=== PATIENT | male | born 1960 ===

== ENCOUNTER 2017-08-03 21:26 | Emergency (ER) | payer OTHER ==
[2017-08-03 21:33] VITALS: O2SAT 98
--- NOTE | 2017-08-03 21:49 | ED PDOC ---
HPI: Male Pain Time Seen by Provider: 08/03/17 21:37 Chief Complaint (Nursing): Male Genitourinary Chief Complaint (Provider): difficulty urinating History Per: Patient, Family History/Exam Limitations: no limitations Onset/Duration Of Symptoms: Days (2) Current Symptoms Are (Timing): Still Present Quality Of Discomfort: Pressure Additional History Per: Patient Additional Complaint(s): 57 y/o male presents with difficulty urinating x 2 days. Patient states he has to push to get urine out, and when it comes out it comes out in "drips". He notes associated abdominal fullness. Admits to similar symptoms in past where he has had to catheterize himself and has had a procedure with urology in past, but does not know what it was for. Denies fever, nausea/vomiting, chest pain, shortness of breath, back pain, hematuria. Past Medical History Reviewed: Historical Data, Nursing Documentation, Vital Signs Vital Signs: Last Vital Signs Temp 98.9 F 08/03/17 21:30 Pulse 76 08/03/17 21:30 Resp 18 08/03/17 21:30 BP 164/105 H 08/03/17 21:30 Pulse Ox 98 08/03/17 21:30 - Medical History PMH: No Chronic Diseases - Family History Family History: States: No Known Family Hx - Home Medications Home Medications: Ambulatory Orders Medication Instructions Recorded Ciprofloxacin HCl [Cipro] 500 mg PO BID #9 tab 08/04/17 - Allergies Allergies/Adverse Reactions: Allergies Allergy/AdvReac Type Severity Reaction Status Date / Time No Known Allergies Allergy Verified 08/03/17 21:30 Review of Systems ROS Statement: Except As Marked, All Systems Reviewed And Found Negative Genitourinary Male: Positive for: Other - Laboratory Results Result Diagrams: 08/03/17 23:28 08/03/17 23:28 - ECG O2 Sat by Pulse Oximetry: 98 - Progress ED Course And Treament: labs, urine, bladder scan Bladder scan >400CC Heredia, Straight catheter attempted by RN without success due to resistance. Dr. Galloway at bedside for coup de cath insertion, also unsuccessful due to resistance. Dr. Galloway spoke with Dr. Main, Urology, who will come for suprapubic catheter insertion. Dr. Main inserted suprapubic cather, leg bag; recommends follow up in office Saturday. On re-eval, patient states he is feeling much better. Abdomen soft, nontender, nondistended. UO 1400CC Cipro rx provided (dose in ED) Patient/family educated on findings, advised follow up Saturday with Dr. Main as instructed. Take medication as directed. Return to ED for worsening/concerning symptoms. Disposition - Clinical Impression Clinical Impression: Acute urinary retention - Patient ED Disposition Is Patient to be Admitted: No Counseled Patient/Family Regarding: Studies Performed, Diagnosis, Need For Followup, Rx Given - Disposition Referrals: Alexsandra Main MD [Medical Doctor] - [facility] [Outside] Disposition: Routine/Home Disposition Time: 01:47 Condition: IMPROVED Prescriptions: Ciprofloxacin HCl [Cipro] 500 mg PO BID #9 tab Instructions: Urinary Retention in Men (ED) Forms: [employer] (Cuban) Print Language: ALBANIAN
[2017-08-03 23:34] LABS: BASO % 0.3 % (0.0-2.0); EOS # 0.3 K/uL (0.0-0.7); EOS % 2.3 % (0.0-4.0); LYMPH % 15.9 % (20.0-40.0); MEAN CELL VOLUME 97.2 fl (80.0-94.0); MEAN CORPUSCULAR HEMOGLOBIN 32.2 pg (27.0-31.0); MEAN CORPUSCULAR HGB CONC 33.1 g/dL (33.0-37.0); MEAN PLATELET VOLUME 10.7 fl (7.2-11.7); MONO # 1.4 K/uL (0.0-0.8); MONO % 10.6 % (0.0-10.0); NEUT # 9.1 K/uL (1.8-7.0); NEUT % 70.9 % (50.0-75.0); WHITE BLOOD COUNT 12.8 K/uL (4.8-10.8)
[2017-08-03 23:43] LABS: ALB/GLOB RATIO 1.4 (1.0-2.1); BILIRUBIN,TOTAL 2.6 mg/dl (0.2-1.3); CALCIUM 8.9 mg/dL (8.4-10.2); POTASSIUM 3.8 MMOL/L (3.6-5.0); TOTAL PROTEIN 7.9 G/DL (6.3-8.2)
[2017-08-03] MEDS ORDERED: Lidocaine 2% Inj (20ml) ONE (23:57)
[2017-08-04 00:54] LABS: RBC URINE 2 /hpf (0-3); URINE BILIRUBIN NEGATIVE (NEGATIVE); URINE BLOOD LARGE (NEGATIVE); URINE COLOR YELLOW (YELLOW); URINE GLUCOSE (UA) NEG (Normal); URINE KETONE NEGATIVE (NEGATIVE); URINE LEUKOCYTE ESTERASE NEG Leu/uL (Negative); URINE PROTEIN 100 mg/dL (NEGATIVE); URINE UROBILINOGEN 0.2-1.0 mg/dL (0.2-1.0); WBC URINE 3 /hpf (0-5)
[2017-08-04 02:01] VITALS: BP 148/79; PULSE 86; RESP 16; TEMP 98.3
[2017-08-04] MEDS ORDERED: Lidocaine 2% Inj (20ml) SC STA (02:19)
== END 2017-08-04 01:59 | disposition home or self-care (01) ==
LOC: SUPCPDRO 21:26 → H.ER 21:26
DX: R33.9 Retention of urine, unspecified (principal)

== ENCOUNTER 2017-08-07 08:18 | Emergency (ER) | payer OTHER ==
[2017-08-07 08:33] VITALS: BP 163/92; PULSE 64; TEMP 98.1; O2SAT 98
[2017-08-07 09:01] VITALS: RESP 18
--- NOTE | 2017-08-07 09:45 | ED PDOC ---
HPI: Male Pain Time Seen by Provider: 08/07/17 09:06 Chief Complaint (Nursing): Male Genitourinary Chief Complaint (Provider): Ostomy bag malfunction History Per: Patient History/Exam Limitations: no limitations Onset/Duration Of Symptoms: Days Associated Symptoms: denies: Fever, Chills, Nausea, Vomiting, Diarrhea, Urinary Symptoms Additional Complaint(s): 57yo male with past medical history of prostate hyperplasia, currently following up with Dr. Main, presents to ED for evaluation as his ostomy bag has been leaking for the past couple days. Patient states his suprapubic catheter was placed by Dr. Main as he has a history of chronic urinary retention. Patient denies any changes in urine color, vomiting, fever and abdominal pain. Patient has no medical complaints. Past Medical History Reviewed: Historical Data, Nursing Documentation, Vital Signs Vital Signs: Last Vital Signs Temp 98.1 F 08/07/17 08:58 Pulse 64 08/07/17 08:58 Resp 18 08/07/17 08:58 BP 163/92 H 08/07/17 08:58 Pulse Ox 98 08/07/17 08:58 - Medical History Other PMH: prostate hyperplasia - Surgical History Other surgeries: urostomy, indwelling suprapubic catheter - Family History Family History: States: No Known Family Hx - Home Medications Home Medications: Ambulatory Orders Medication Instructions Recorded Ciprofloxacin HCl [Cipro] 500 mg PO BID #9 tab 08/04/17 - Allergies Allergies/Adverse Reactions: Allergies Allergy/AdvReac Type Severity Reaction Status Date / Time No Known Allergies Allergy Verified 08/03/17 21:30 Review of Systems ROS Statement: Except As Marked, All Systems Reviewed And Found Negative Constitutional: Negative for: Fever, Chills Gastrointestinal: Negative for: Nausea, Vomiting, Abdominal Pain, Diarrhea Genitourinary Male: Positive for: Other (leaking urostomy bag). Negative for: Hematuria Physical Exam - Reviewed Nursing Documentation Reviewed: Yes Vital Signs Reviewed: Yes - Physical Exam Appears: Positive for: Non-toxic, No Acute Distress Head Exam: Positive for: ATRAUMATIC, NORMAL INSPECTION, NORMOCEPHALIC Skin: Positive for: Normal Color Eye Exam: Positive for: Normal appearance Neck: Positive for: Supple Cardiovascular/Chest: Positive for: Regular Rate, Rhythm Respiratory: Positive for: Normal Breath Sounds. Negative for: Respiratory Distress Gastrointestinal/Abdominal: Positive for: Soft, Other (indwelling suprapubic catheter, no swelling or tenderness). Negative for: Tenderness Extremity: Positive for: Normal ROM, Other (ostomy bag near right thigh filled with urine) Neurologic/Psych: Positive for: Alert, Oriented - ECG O2 Sat by Pulse Oximetry: 98 (RA) Pulse Ox Interpretation: Normal Medical Decision Making Medical Decision Making: Time: 919 Impression: Urostomy bag malfunction Plan: -- Change urostomy bag. Patient instructed to follow up with Dr. Main. Patient stable for discharge home. Scribe Attestation: Documented by Mariah Beltran acting as a scribe for Jen Yates MD. Provider Attestation: All medical record entries made by the Scribe were at my direction and personally dictated by me. I have reviewed the chart and agree that the record accurately reflects my personal performance of the history, physical exam, medical decision making, and the department course for this patient. I have also personally directed, reviewed, and agree with the discharge instructions and disposition. Disposition - Clinical Impression Clinical Impression: Suprapubic catheter dysfunction - Disposition Referrals: Alexsandra Main MD [Medical Doctor] - Disposition: Routine/Home Disposition Time: 10:30 Condition: GOOD Additional Instructions: Follow up with your PCP in 2-3 days. Instructions: Urinary Leg Bag (GEN) Print Language: [place] RICAN
== END 2017-08-07 11:14 | disposition home or self-care (01) ==
LOC: H.ER 08:18
DX: T83.090A Other mechanical complication of cystostomy catheter, initial encounter (principal); N40.0 Benign prostatic hyperplasia without lower urinary tract symptoms

== ENCOUNTER 2017-08-14 09:38 | Emergency (ER) | payer SELFPAY ==
[2017-08-14 09:40] VITALS: BMI 32.5
[2017-08-14 09:55] VITALS: BP 144/68; PULSE 71; RESP 21; TEMP 98.5; O2SAT 96
[2017-08-14 11:04] LABS: RBC URINE 7 /hpf (0-3); URINE BACTERIA OCC (<OCC); URINE BILIRUBIN NEGATIVE (NEGATIVE); URINE BLOOD SMALL (NEGATIVE); URINE COLOR YELLOW (YELLOW); URINE GLUCOSE (UA) NEG (Normal); URINE KETONE NEGATIVE (NEGATIVE); URINE LEUKOCYTE ESTERASE MOD Leu/uL (Negative); URINE PROTEIN 30 mg/dL (NEGATIVE); URINE UROBILINOGEN 0.2-1.0 mg/dL (0.2-1.0); WBC URINE 19 /hpf (0-5)
--- NOTE | 2017-08-14 11:31 | ED PDOC ---
HPI: Male Pain Time Seen by Provider: 08/14/17 10:02 Chief Complaint (Nursing): Male Genitourinary History Per: Patient (present for urine leg bag to be changed. He is scheduled for prostate surgery with Dr. Main in 5 days. States that Preop has been done already.) History/Exam Limitations: no limitations Past Medical History Reviewed: Historical Data, Nursing Documentation, Vital Signs Vital Signs: Last Vital Signs Temp 98.5 F 08/14/17 09:54 Pulse 71 08/14/17 09:54 Resp 21 08/14/17 09:54 BP 144/68 08/14/17 09:54 Pulse Ox 96 08/14/17 09:54 - Medical History Other PMH: prostate disease - Family History Family History: States: Unknown Family Hx - Home Medications Home Medications: Ambulatory Orders Medication Instructions Recorded Ciprofloxacin HCl [Cipro] 500 mg PO BID #9 tab 08/04/17 - Allergies Allergies/Adverse Reactions: Allergies Allergy/AdvReac Type Severity Reaction Status Date / Time No Known Allergies Allergy Verified 08/14/17 09:59 Review of Systems ROS Statement: Except As Marked, All Systems Reviewed And Found Negative Constitutional: Negative for: Fever, Chills Gastrointestinal: Negative for: Nausea, Vomiting Genitourinary Male: Negative for: Dysuria (but has foul smelling urine) Physical Exam - Reviewed Nursing Documentation Reviewed: Yes Vital Signs Reviewed: Yes - Physical Exam Appears: Positive for: Well, Non-toxic, No Acute Distress Skin: Positive for: Normal Color, Warm, DRY Eye Exam: Positive for: EOMI, Normal appearance, PERRL Gastrointestinal/Abdominal: Positive for: Other (suprapubic catheter in place) - ECG O2 Sat by Pulse Oximetry: 96 Disposition - Clinical Impression Clinical Impression: Urine malodor, Suprapubic catheter dysfunction - Patient ED Disposition Is Patient to be Admitted: No Doctor Will See Patient In The: Office Counseled Patient/Family Regarding: Diagnosis, Need For Followup - Disposition Referrals: Alexsandra Main MD [Medical Doctor] - Disposition: Routine/Home Disposition Time: 11:15 Condition: STABLE Instructions: Urinary Leg Bag (GEN) Forms: [employer] (Iraqi) Print Language: MALAY - POA Present On Arrival: None
== END 2017-08-14 12:11 | disposition home or self-care (01) ==
LOC: H.ER 09:38
DX: T83.090A Other mechanical complication of cystostomy catheter, initial encounter (principal)

== ENCOUNTER 2017-08-19 07:37 | Day surgery (SDC) | payer SELFPAY ==
[2017-08-14 10:11] VITALS: BMI 32.5
[2017-08-19] MEDS ORDERED: Lactated Ringer's 1,000 ML IV ONE (08:50)
[2017-08-19] MEDS ORDERED: Midazolam 2 MG/2 ML VIAL ONE (10:48)
[2017-08-19] MEDS ORDERED: Lidocaine 4% (Laryng-O-Jet) Kit MM ONE (10:48)
[2017-08-19] MEDS ORDERED: Propofol 10 mg/ml Inj (20 ML) ONE ×2 (10:48→11:17)
[2017-08-19] MEDS ORDERED: ePHEDrine 50 mg/ml Inj ONE (10:48)
[2017-08-19] MEDS ORDERED: Succinylcholine 200 mg/10 ml Inj IV ONE (10:48)
[2017-08-19] MEDS ORDERED: Lactated Ringer's 1,000 ML IV SCH (11:45)
[2017-08-19] MEDS: HYDROmorphone 0.5 mg/0.5 ml ISec IVP PRN ×2 (12:15→12:25)
[2017-08-19 13:43] VITALS: RESP 18
[2017-08-19 15:47] VITALS: BP 150/78; PULSE 62; TEMP 97.4; O2SAT 97
--- NOTE | 2017-08-19 19:41 | OP ---
PROCEDURE DATE: PREOPERATIVE DIAGNOSES: Urethral stricture, urinary retention. POSTOPERATIVE DIAGNOSES: Urethral stricture, urinary retention. PROCEDURE PERFORMED: Cystoscopy with internal optical urethrotomy and removal of a suprapubic tube. DESCRIPTION OF PROCEDURE: Patient was placed in the operating table in dorsal lithotomy position. The area of the groin was draped and prepped in the sterile manner. Using an optical urethrotome, went into the urethra atraumatically, identified the stricture which was probably in the proximal third of the urethra. I made 3 incisions into this stricture and was able then to bypass with the urethrotome into the bladder. There was no prostatic obstruction. The suprapubic tube was seen in the bladder. At that point, the urethrotome then was removed. The #24 Heredia catheter was inserted, and then I removed the suprapubic tube at this time. The initial outflow had a little bit of blood tinged urine; otherwise, following that was rather clear. Patient was taken from the operating room in good condition. Alexsandra Main MD
== END 2017-08-19 16:30 | disposition home or self-care (01) ==
LOC: H.OPSURG 07:37
PROVIDERS: ATTEND Urology
DX: N35.9 Urethral stricture, unspecified (principal)
CPT/HCPCS: 52275; J0330; J1170; J2001; J2250; J2704; J3010; J7120

== ENCOUNTER 2017-08-24 03:38 | Emergency (ER) | payer SELFPAY ==
[2017-08-24 03:38] VITALS: BMI 32.5
[2017-08-24 03:55] VITALS: RESP 16; TEMP 99; O2SAT 98
--- NOTE | 2017-08-24 04:33 | ED PDOC ---
HPI: Male Pain Time Seen by Provider: 08/24/17 03:40 Chief Complaint (Nursing): Male Genitourinary Chief Complaint (Provider): Male Genitourinary History Per: Patient History/Exam Limitations: no limitations Current Symptoms Are (Timing): Still Present Additional Complaint(s): 57 y/o male with a Heredia catheter and with past medical history of cystoscopy presents to the ED complaining of difficulty with urination. The catheter was removed yesterday and since then unable to completely void bladder and is only able to go a small amount at a time. Denies nausea, vomiting, diarrhea, fever, cough, shortness of breath or any further medical complaints. Past Medical History Reviewed: Historical Data, Nursing Documentation, Vital Signs Vital Signs: Last Vital Signs Temp 99 F 08/24/17 03:50 Pulse 77 08/24/17 03:50 Resp 16 08/24/17 03:50 BP 139/89 08/24/17 03:50 Pulse Ox 98 08/24/17 03:50 - Medical History PMH: Denies: Chronic Kidney Disease - Surgical History Other surgeries: cystoscopy - Family History Family History: States: Unknown Family Hx - Social History Current smoker - smoking cessation education provided: No (former smoker) Alcohol: Other (yes) Drugs: Denies - Home Medications Home Medications: Ambulatory Orders Medication Instructions Recorded Nitrofurantoin Monohyd/M-Cryst 100 mg PO BID 08/19/17 [Nitrofurantoin Monohydrate/Macrocrystals] - Allergies Allergies/Adverse Reactions: Allergies Allergy/AdvReac Type Severity Reaction Status Date / Time No Known Allergies Allergy Verified 08/24/17 03:50 Review of Systems ROS Statement: Except As Marked, All Systems Reviewed And Found Negative (As per HPI, otherwise negative) Genitourinary Male: Positive for: Dysuria Physical Exam - Reviewed Nursing Documentation Reviewed: Yes Vital Signs Reviewed: Yes - Physical Exam Appears: Positive for: Uncomfortable Head Exam: Positive for: ATRAUMATIC, NORMAL INSPECTION, NORMOCEPHALIC Skin: Positive for: Normal Color, Warm, Dry Eye Exam: Positive for: EOMI, Normal appearance, PERRL ENT: Positive for: Normal ENT Inspection Neck: Positive for: Normal, Painless ROM Cardiovascular/Chest: Positive for: Regular Rate, Rhythm. Negative for: Murmur Respiratory: Positive for: Normal Breath Sounds. Negative for: Accessory Muscle Use, Respiratory Distress Gastrointestinal/Abdominal: Positive for: Tenderness (suprapubic tenderness) - ECG O2 Sat by Pulse Oximetry: 98 Medical Decision Making Medical Decision Making: Time: 04:09 Initial Impression: 57 y/o male with difficulty urination after Heredia catheter removal Plan: Urine dipstick Culture urine Urinary catheter insertion Urinalysis Time: 05:21 Patient reports improvement in symptoms after voiding 2L of urine in bag. Patient is referred to urologist for further evaluation. Patient will be discharge home. Clinical Impression: Acute urinary retention Scribe Attestation: Documented by Jaison Jiménez acting as a scribe for Jacques Elizabeth MD. Scribe Attestation: All medical record entries made by the Scribe were at my direction and personally dictated by me. I have reviewed the chart and agree that the record accurately reflects my personal performance of the history, physical exam, medical decision making, and the department course for this patient. I have also personally directed, reviewed, and agree with the discharge instructions and disposition. Disposition - Clinical Impression Clinical Impression: Acute urinary retention - Disposition Referrals: Alexsandra Main MD [Medical Doctor] - Disposition: Routine/Home Disposition Time: 05:21 Condition: IMPROVED Instructions: Heredia Catheter Placement and Care (ED) Forms: [employer] (Comoran) Print Language: TURKMEN
[2017-08-24 04:53] LABS: RBC URINE 241 /hpf (0-3); URINE BACTERIA OCC (<OCC); URINE BILIRUBIN NEGATIVE (NEGATIVE); URINE BLOOD LARGE (NEGATIVE); URINE COLOR YELLOW (YELLOW); URINE GLUCOSE (UA) NEG (Normal); URINE KETONE NEGATIVE (NEGATIVE); URINE LEUKOCYTE ESTERASE LARGE Leu/uL (Negative); URINE PROTEIN 100 mg/dL (NEGATIVE); URINE UROBILINOGEN 0.2-1.0 mg/dL (0.2-1.0); WBC URINE 457 /hpf (0-5)
[2017-08-24 05:21] VITALS: BP 151/90; PULSE 65
== END 2017-08-24 05:30 | disposition home or self-care (01) ==
LOC: H.ER 03:38
DX: R33.9 Retention of urine, unspecified (principal)

== ENCOUNTER 2017-08-26 20:24 | Inpatient (IN) | payer SELFPAY ==
[2017-08-26 20:25] VITALS: BMI 32.5
--- NOTE | 2017-08-26 22:34 | CP.PCM.HP ---
History of Present Illness - History of Present Illness History of Present Illness: PCP: Not on Staff Urologist: Alexsandra Main MD Chief Complaint: Positive Urine Culture The patient was seen and evaluated in the ED HPI: 57 years old Male with hx of BPH, under- went Cystoscopy 08/19/[address] Main. The Ronquillo catheter was removed on 08/22/17 in the ED and patient discharged. He returned later the same night because of urinary retention. A new ronquillo satheter was inserted and specimen sent for culture and sensitivity. The patient was called by his Urologist to go to the ED for admission and antibiotic treatment of an ESBL E. coli which cultured in the Urine.Because of this the patient is here at the ED. No other complaints. PMH: BPH PSH: Cystoscopy Family Hx: States: Unknown Family Hx SH: Former Smoker; Alcohol socially; No illdgal drug use Allergies: NKDA Medication: Reviewed Present on Admission - Present on Admission Any Indicators Present on Admission: No History of DVT/PE: No History of Uncontrolled Diabetes: No Urinary Catheter: No Decubitus Ulcer Present: No Review of Systems - Review of Systems Systems not reviewed;Unavailable: Respiratory Distress - Constitutional Constitutional: absent: Chills, Fatigue, Fever, Frequent Falls, Headache - EENT Eyes: absent: Diplopia, Floaters, Photophobia, Requires Corrective Lenses Ears: absent: As Per HPI, Decreased Hearing, Ear Discharge, Tinnitus Nose/Mouth/Throat: absent: Epistaxis, Nasal Congestion, Nasal Discharge - Cardiovascular Cardiovascular: absent: Chest Pain, Diaphoresis, Dyspnea, Edema - Respiratory Respiratory: absent: Cough, Dyspnea, Wheezing, Chest Congestion - Gastrointestinal Gastrointestinal: absent: Abdominal Pain, Constipation, Cramping, Diarrhea, Nausea, Vomiting - Genitourinary Additional comments: Ronquillo catheter with bag attached in urethra. - Musculoskeletal Musculoskeletal: absent: Abnormal Gait, Arthralgias, Back Pain, Joint Swelling - Integumentary Integumentary: absent: Pruritus, Rash, Skin Ulcer, Sores, Striae, Swelling - Neurological Neurological: absent: Confusion, Focal Weakness, Loss of Vision, Restless Legs, Weakness - Psychiatric Psychiatric: absent: Anxiety, Depression, Panic Attacks - Endocrine Endocrine: absent: Fatigue, Polydipsia, Polyphagia, Polyuria - Hematologic/Lymphatic Hematologic: absent: Easy Bleeding, Easy Bruising Past Patient History - Infectious Disease Hx of Infectious Diseases: None - Past Medical History & Family History Past Medical History?: Yes - Past Social History Smoking Status: Former Smoker Chewing Tobacco Use: No Cigar Use: No Alcohol: Social Drugs: Denies - CARDIAC Hx Cardiac Disorders: No - PULMONARY Hx Respiratory Disorders: No - NEUROLOGICAL Hx Neurological Disorder: No - HEENT Hx HEENT Problems: No - RENAL Hx Chronic Kidney Disease: No - ENDOCRINE/METABOLIC Hx Endocrine Disorders: No - HEMATOLOGICAL/ONCOLOGICAL Hx Blood Disorders: No - INTEGUMENTARY Hx Dermatological Problems: No - MUSCULOSKELETAL/RHEUMATOLOGICAL Hx Musculoskeletal Disorders: No - GASTROINTESTINAL Hx Gastrointestinal Disorders: No - GENITOURINARY/GYNECOLOGICAL Hx Genitourinary Disorders: Yes Hx Prostate Problems: Yes Other/Comment: pt is poor historian- bladder issues within the last year - PSYCHIATRIC Hx Psychophysiologic Disorder: No Hx Substance Use: No - SURGICAL HISTORY Hx Surgeries: Yes Other/Comment: pt reports having sx with a urologist-does not recall. suprapubic catheter placement - ANESTHESIA Hx Anesthesia: Yes Hx Anesthesia Reactions: No Hx Malignant Hyperthermia: No Meds Allergies/Adverse Reactions: Allergies Allergy/AdvReac Type Severity Reaction Status Date / Time No Known Allergies Allergy Verified 08/24/17 03:50 Physical Exam - Constitutional Appears: No Acute Distress - Head Exam Head Exam: ATRAUMATIC, NORMAL INSPECTION, NORMOCEPHALIC - Eye Exam Eye Exam: EOMI, Normal appearance Pupil Exam: NORMAL ACCOMODATION, PERRL - ENT Exam ENT Exam: Mucous Membranes Moist, Normal Exam, Normal External Ear Exam, Normal Oropharynx - Respiratory Exam Respiratory Exam: Clear to Auscultation Bilateral. absent: Rales, Rhonchi, Wheezes - Cardiovascular Exam Cardiovascular Exam: REGULAR RHYTHM, RRR, +S1, +S2. absent: Gallop, JVD - GI/Abdominal Exam GI & Abdominal Exam: Normal Bowel Sounds, Soft. absent: Mass, Organomegaly, Tenderness - Rectal Exam Rectal Exam: Deferred - Extremities Exam Extremities exam: Positive for: full ROM. Negative for: calf tenderness, normal inspection, pedal edema - Back Exam Back exam: NORMAL INSPECTION. absent: CVA tenderness (L), CVA tenderness (R) - Neurological Exam Neurological exam: Altered, CN II-XII Intact, Reflexes Normal - Psychiatric Exam Psychiatric exam: Normal Affect, Normal Mood - Skin Skin Exam: Dry, Intact, Normal Color, Warm Results - Vital Signs Recent Vital Signs: Last Vital Signs Temp 98.1 F 08/26/17 21:26 Pulse 73 08/26/17 21:26 Resp 18 08/26/17 21:26 BP 147/79 08/26/17 21:26 Pulse Ox 98 08/26/17 21:26 - Labs Result Diagrams: 08/26/17 23:20 08/26/17 23:20 - Imaging and Cardiology Chest x-ray Status: Image reviewed by me Additional comment: No Infiltrate Assessment & Plan - Assessment and Plan (Free Text) Assessment: #. Complicated UTI with ESBL E.coli #. BPH with urinary retention Plan: 57 years old Male with hx of BPH, under- went Cystoscopy 08/19/[address] Main. A few hours after removal of the ronquillo catheter, he developed urinary retention . He returned to the ED where a new ronquillo was reinserted and urine sent for culture.The culture grew ESBL E. coli and the patient was called back to the ED to be treated with IV antibiotics. s. #. Complicated UTI with ESBL E.coli - Consult Dr Wilson ID - Meropenem - Repeat urine culture after #. BPH with urinary retention - consult Dr Webberrology - Continue Ronquillo catheter until seen by Urology #. DVT Prophylaxis with SCD #. Code Status: Full - Date & Time Date: 08/26/17 Time: 22:33
--- NOTE | 2017-08-26 22:38 | ED PDOC ---
HPI: Male Pain Time Seen by Provider: 08/26/17 21:43 Chief Complaint (Nursing): Male Genitourinary Chief Complaint (Provider): Hematuria History Per: Patient History/Exam Limitations: no limitations Additional Complaint(s): Pt had cystoscopy on 08/19/[address] Main. On 08/24, Heredia was removed but came to ED when unable to urinate, another Heredia placed and urine sent for analysis. Culture results today revealed ESBL and recommended by Dr. Main to return for admission for IV antibiotics and ID consult. Pt reports hematuria today. Denies fever, nausea, vomiting, abdominal pain. Past Medical History Reviewed: Nursing Documentation, Vital Signs Vital Signs: Last Vital Signs Temp 98.1 F 08/26/17 21:26 Pulse 73 08/26/17 21:26 Resp 18 08/26/17 21:26 BP 147/79 08/26/17 21:26 Pulse Ox 98 08/26/17 21:26 - Medical History PMH: Benign Prostatic Hyperplasia Denies: Chronic Kidney Disease - Surgical History Other surgeries: Cystoscopy - Family History Family History: States: Unknown Family Hx - Social History Current smoker - smoking cessation education provided: No - Home Medications Home Medications: Ambulatory Orders Medication Instructions Recorded Nitrofurantoin Monohyd/M-Cryst 100 mg PO BID 08/19/17 [Nitrofurantoin Monohydrate/Macrocrystals] - Allergies Allergies/Adverse Reactions: Allergies Allergy/AdvReac Type Severity Reaction Status Date / Time No Known Allergies Allergy Verified 08/24/17 03:50 Review of Systems Constitutional: Negative for: Fever, Chills Cardiovascular: Negative for: Chest Pain, Palpitations Respiratory: Negative for: Cough, Shortness of Breath Gastrointestinal: Negative for: Nausea, Vomiting, Abdominal Pain, Diarrhea Genitourinary Male: Positive for: Hematuria. Negative for: Scrotal Pain, Rash, Penile Pain Musculoskeletal: Negative for: Back Pain Skin: Negative for: Rash, Lesions Neurological: Negative for: Headache Physical Exam - Reviewed Nursing Documentation Reviewed: Yes Vital Signs Reviewed: Yes - Physical Exam Appears: Positive for: Well, No Acute Distress Skin: Positive for: Normal Color, Warm, Dry Eye Exam: Positive for: Normal appearance, EOMI, PERRL Cardiovascular/Chest: Positive for: Regular Rate, Rhythm Respiratory: Positive for: Normal Breath Sounds Gastrointestinal/Abdominal: Positive for: Normal Exam, Bowel Sounds, Soft. Negative for: Tenderness, Guarding, Rebound Male Genital Exam: Positive for: other (Heredia in place). Negative for: bleeding Back: Positive for: Normal Inspection. Negative for: L CVA Tenderness, R CVA Tenderness Extremity: Positive for: Normal ROM Neurologic/Psych: Positive for: Alert, Oriented - Laboratory Results Result Diagrams: 08/26/17 23:20 - ECG O2 Sat by Pulse Oximetry: 98 - Physician Consult Information Physician Contacted: Young Wilson Outcome Of Conversation: States can initiate Meropenem without ID approval. Medical Decision Making Medical Decision Makin yo male with + ESBL on urine culture s/p cystoscopy. - labs - EKG - CXR - IV Abx Disposition - Clinical Impression Clinical Impression: ESBL (extended spectrum beta-lactamase) producing bacteria infection - Disposition Disposition Time: 23:48 Condition: STABLE - Pt Status Changed To: Hospital Disposition Of: Inpatient - Admit Certification Admit to Inpatient:: After my assessment, the patient will require hospitalization for at least two midnights. This is because of the severity of symptoms shown, intensity of services needed, and/or the medical risk in this patient being treated as an outpatient. - POA Present On Arrival: Cath Associated UTI
[2017-08-26 23:26] LABS: VENOUS BLOOD GAS PCO2 44 mmHg (40-60)
[2017-08-26 23:40] LABS: BASO # 0.1 K/uL (0.0-0.2); BASO % 0.7 % (0.0-2.0); EOS # 0.2 K/uL (0.0-0.7); EOS % 3.2 % (0.0-4.0); HEMATOCRIT 39.7 % (35.0-51.0); LYMPH # 2.7 K/uL (1.0-4.3); LYMPH % 34.7 % (20.0-40.0); MEAN CELL VOLUME 96.2 fl (80.0-94.0); MEAN CORPUSCULAR HEMOGLOBIN 31.9 pg (27.0-31.0); MEAN CORPUSCULAR HGB CONC 33.2 g/dL (33.0-37.0); MEAN PLATELET VOLUME 10.2 fl (7.2-11.7); MONO # 0.8 K/uL (0.0-0.8); MONO % 9.9 % (0.0-10.0); NEUT % 51.5 % (50.0-75.0); NRBC % 0.1 % (0.0-0.0); RED CELL DISTRIBUTION WIDTH 12.9 % (11.5-14.5); WHITE BLOOD COUNT 7.7 K/uL (4.8-10.8)
[2017-08-26] MEDS ORDERED: Meropenem 500 MG in Sodium Chloride 0.9% 100 ML IVPB STA (23:46)
[2017-08-26 23:56] LABS: PARTIAL THROMBOPLASTIN TIME 30.6 Seconds (25.6-37.1)
[2017-08-27 00:05] LABS: ALB/GLOB RATIO 1.3 (1.0-2.1); ALKALINE PHOSPHATASE 42 U/L (38-126); ALT/SGPT 35 U/L (21-72); AST/SGOT 22 U/L (17-59); BILIRUBIN,TOTAL 1.6 mg/dl (0.2-1.3); BLOOD UREA NITROGEN 15 mg/dl (9-20); CALCIUM 9.1 mg/dL (8.4-10.2); CARBON DIOXIDE 24 mmol/L (22-30); CHLORIDE 106 mmol/L (98-107); GFR AFRICAN-AMERICAN > 60; GLUCOSE,RANDOM 102 mg/dL (75-110); POTASSIUM 3.6 MMOL/L (3.6-5.0); SODIUM 141 mmol/l (132-148); TOTAL PROTEIN 7.3 G/DL (6.3-8.2)
[2017-08-27] MEDS ORDERED: Meropenem 500 MG in Sodium Chloride 0.9% 100 ML IVPB SCH (01:00)
--- NOTE | 2017-08-27 01:07 | CP.PCM.HP ---
History of Present Illness - History of Present Illness History of Present Illness: Past Patient History - Infectious Disease Hx of Infectious Diseases: None - Past Medical History & Family History Past Medical History?: Yes - Past Social History Smoking Status: Former Smoker - CARDIAC Hx Cardiac Disorders: No - PULMONARY Hx Respiratory Disorders: No - NEUROLOGICAL Hx Neurological Disorder: No - HEENT Hx HEENT Problems: No - RENAL Hx Chronic Kidney Disease: No - ENDOCRINE/METABOLIC Hx Endocrine Disorders: No - HEMATOLOGICAL/ONCOLOGICAL Hx Blood Disorders: No - INTEGUMENTARY Hx Dermatological Problems: No - MUSCULOSKELETAL/RHEUMATOLOGICAL Hx Musculoskeletal Disorders: No - GASTROINTESTINAL Hx Gastrointestinal Disorders: No - GENITOURINARY/GYNECOLOGICAL Hx Genitourinary Disorders: Yes Hx Prostate Problems: Yes Other/Comment: pt is poor historian- bladder issues within the last year - PSYCHIATRIC Hx Psychophysiologic Disorder: No Hx Substance Use: No - SURGICAL HISTORY Hx Surgeries: Yes Other/Comment: pt reports having sx with a urologist-does not recall. suprapubic catheter placement - ANESTHESIA Hx Anesthesia: Yes Hx Anesthesia Reactions: No Hx Malignant Hyperthermia: No Meds Allergies/Adverse Reactions: Allergies Allergy/AdvReac Type Severity Reaction Status Date / Time No Known Allergies Allergy Verified 08/24/17 03:50 Results - Vital Signs Recent Vital Signs: Last Vital Signs Temp 98.1 F 08/26/17 21:26 Pulse 73 08/26/17 21:26 Resp 18 08/26/17 21:26 BP 147/79 08/26/17 21:26 Pulse Ox 98 08/26/17 23:48 - Labs Result Diagrams: 08/26/17 23:20 08/26/17 23:20 Labs: Laboratory Results - last 24 hr 08/26/17 08/26/17 08/26/17 23:20 23:20 23:20 WBC 7.7 RBC 4.13 L Hgb 13.2 Hct 39.7 MCV 96.2 H MCH 31.9 H MCHC 33.2 RDW 12.9 Plt Count 174 MPV 10.2 Neut % (Auto) 51.5 Lymph % (Auto) 34.7 Mower % (Auto) 9.9 Eos % (Auto) 3.2 Baso % (Auto) 0.7 Neut # 4.0 Lymph # 2.7 Mower # 0.8 Eos # 0.2 Baso # 0.1 PT 11.5 INR 1.0 APTT 30.6 pO2 VBG pH VBG pCO2 VBG HCO3 VBG Total CO2 VBG O2 Sat (Calc) VBG Base Excess VBG Potassium Glucose Lactate FiO2 Sodium 141 Potassium 3.6 Chloride 106 Carbon Dioxide 24 Anion Gap 15 BUN 15 Creatinine 0.9 Est GFR ( Amer) > 60 Est GFR (Non-Af Amer) > 60 Random Glucose 102 Calcium 9.1 Total Bilirubin 1.6 H AST 22 ALT 35 Alkaline Phosphatase 42 Total Protein 7.3 Albumin 4.1 Globulin 3.2 Albumin/Globulin Ratio 1.3 Venous Blood Potassium 08/26/17 23:24 WBC RBC Hgb Hct MCV MCH MCHC RDW Plt Count MPV Neut % (Auto) Lymph % (Auto) Mower % (Auto) Eos % (Auto) Baso % (Auto) Neut # Lymph # Mower # Eos # Baso # PT INR APTT pO2 50 VBG pH 7.40 VBG pCO2 44 VBG HCO3 26.2 VBG Total CO2 28.7 H VBG O2 Sat (Calc) 88.7 H VBG Base Excess 2.0 VBG Potassium 3.4 L Glucose 126 H Lactate 0.7 FiO2 21.0 Sodium 139.0 Potassium Chloride 105.0 Carbon Dioxide Anion Gap BUN Creatinine Est GFR ( Amer) Est GFR (Non-Af Amer) Random Glucose Calcium Total Bilirubin AST ALT Alkaline Phosphatase Total Protein Albumin Globulin Albumin/Globulin Ratio Venous Blood Potassium 3.4 L Assessment & Plan - Date & Time Date: 08/26/17 Time: 22:23
--- NOTE | 2017-08-27 08:37 | RAD ---
HISTORY: Admission COMPARISON: Chest radiograph 08/14/2017. FINDINGS: LUNGS: No active pulmonary disease. PLEURA: No significant pleural effusion identified, no pneumothorax apparent. CARDIOVASCULAR: Normal. OSSEOUS STRUCTURES: No significant abnormalities. VISUALIZED UPPER ABDOMEN: Left hemidiaphragm appears mildly elevated. OTHER FINDINGS: None. IMPRESSION: No acute infiltrate or pleural effusion bilaterally. No cardiac disease appreciable. Left hemidiaphragm appears slightly elevated in the interval.
[2017-08-27] MEDS ORDERED: Influenza Vaccine 18yr & older 0.5 ML/45 MCG SYR IM ONE (09:00)
[2017-08-27] MEDS ORDERED: Pneumococcal 23-Valent Vaccine IM ONE (09:00)
--- NOTE | 2017-08-27 09:54 | CP.PCM.CON ---
History of Present Illness - History of Present Illness History of Present Illness: Infectious Disease Consultation Note- Asked to see this patient at the request of hospitalist and Gu for ESBL E.coli in urine cx. HPI- History obtained both from the patient and the medical chart . Patient is a 57 year old male with pmh of BPH who states for the past 3 years he has been dealing with difficulty urinating and has had multiple catheterizations to help with urinary retention. he states he has prostate scraping done first time a year ago and after that he had some difficulty urinating still oan and off and he was doing home self catheterization for a while and then later on he explains that 3 weeks ago he had prostate scraping by his ( second time as per patient ) and after that he states he had cystoscopy 08/19/2017 and few hours after removal of the ronquillo he developed urinary retention and he returned to ED where he had new ronquillo placed and urine cx was done and the cx grew ESBL e.coli and hence pt. was called back to be treated by IV antibiotics. Patient denies any dysurea and denies any lower abd pain and denies any back pain. he denies any nausea or vomiting, denies any fever or chills. he states he has been treated in past for positive urien cx but mostly with oral antibiotics. this morning pt. is sitting comfortably in bed and he states his ronquillo was removed an hour ago as per his rec and they will monitor to see if he can void on his own. pt. also states he has had suprapubic catheter in past. Allergy- NKDA Review of Systems - Review of Systems Review of Systems: as stated in HPI Past Patient History - Infectious Disease Hx of Infectious Diseases: None - Past Medical History & Family History Past Medical History?: Yes - Past Social History Smoking Status: Former Smoker Chewing Tobacco Use: No Cigar Use: No Alcohol: Social Drugs: Denies - CARDIAC Hx Cardiac Disorders: No - PULMONARY Hx Respiratory Disorders: No - NEUROLOGICAL Hx Neurological Disorder: No - HEENT Hx HEENT Problems: No - RENAL Hx Chronic Kidney Disease: No - ENDOCRINE/METABOLIC Hx Endocrine Disorders: No - HEMATOLOGICAL/ONCOLOGICAL Hx Blood Disorders: No - INTEGUMENTARY Hx Dermatological Problems: No - MUSCULOSKELETAL/RHEUMATOLOGICAL Hx Musculoskeletal Disorders: No - GASTROINTESTINAL Hx Gastrointestinal Disorders: No - GENITOURINARY/GYNECOLOGICAL Hx Genitourinary Disorders: Yes Hx Prostate Problems: Yes Other/Comment: pt is poor historian- bladder issues within the last year - PSYCHIATRIC Hx Psychophysiologic Disorder: No Hx Substance Use: No - SURGICAL HISTORY Hx Surgeries: Yes Other/Comment: pt reports having sx with a urologist-does not recall. suprapubic catheter placement - ANESTHESIA Hx Anesthesia: Yes Hx Anesthesia Reactions: No Hx Malignant Hyperthermia: No Meds Allergies/Adverse Reactions: Allergies Allergy/AdvReac Type Severity Reaction Status Date / Time No Known Allergies Allergy Verified 08/24/17 03:50 - Medications Medications: Current Medications Meropenem 1 gm/ Sodium (Chloride) 100 mls @ 100 mls/hr IVPB Q8 PAULA PRN Reason: Protocol Stop: 08/28/17 01:59 Physical Exam - Constitutional Appears: Non-toxic, No Acute Distress - Head Exam Head Exam: ATRAUMATIC - Eye Exam Eye Exam: EOMI - ENT Exam ENT Exam: Normal Oropharynx - Neck Exam Neck exam: Positive for: Full Rom - Respiratory Exam Respiratory Exam: Clear to Auscultation Bilateral, NORMAL BREATHING PATTERN - Cardiovascular Exam Cardiovascular Exam: RRR, +S1, +S2 - GI/Abdominal Exam GI & Abdominal Exam: Normal Bowel Sounds, Soft Additional comments: NT, ND no guarding, no rebound NO CVA tenderness b/l - Extremities Exam Extremities exam: Positive for: normal inspection - Neurological Exam Neurological exam: Alert, Oriented x3 Results - Vital Signs Recent Vital Signs: Last Vital Signs Temp 97.9 F 08/27/17 08:02 Pulse 79 08/27/17 08:02 Resp 20 08/27/17 08:02 BP 146/84 08/27/17 08:02 Pulse Ox 95 08/27/17 08:02 - Labs Result Diagrams: 08/26/17 23:20 08/26/17 23:20 Labs: Laboratory Results - last 24 hr 08/26/17 08/26/17 08/26/17 23:20 23:20 23:20 WBC 7.7 RBC 4.13 L Hgb 13.2 Hct 39.7 MCV 96.2 H MCH 31.9 H MCHC 33.2 RDW 12.9 Plt Count 174 MPV 10.2 Neut % (Auto) 51.5 Lymph % (Auto) 34.7 Woodward % (Auto) 9.9 Eos % (Auto) 3.2 Baso % (Auto) 0.7 Neut # 4.0 Lymph # 2.7 Woodward # 0.8 Eos # 0.2 Baso # 0.1 PT 11.5 INR 1.0 APTT 30.6 pO2 VBG pH VBG pCO2 VBG HCO3 VBG Total CO2 VBG O2 Sat (Calc) VBG Base Excess VBG Potassium Glucose Lactate FiO2 Sodium 141 Potassium 3.6 Chloride 106 Carbon Dioxide 24 Anion Gap 15 BUN 15 Creatinine 0.9 Est GFR ( Amer) > 60 Est GFR (Non-Af Amer) > 60 Random Glucose 102 Calcium 9.1 Total Bilirubin 1.6 H AST 22 ALT 35 Alkaline Phosphatase 42 Total Protein 7.3 Albumin 4.1 Globulin 3.2 Albumin/Globulin Ratio 1.3 Venous Blood Potassium 08/26/17 23:24 WBC RBC Hgb Hct MCV MCH MCHC RDW Plt Count MPV Neut % (Auto) Lymph % (Auto) Woodward % (Auto) Eos % (Auto) Baso % (Auto) Neut # Lymph # Woodward # Eos # Baso # PT INR APTT pO2 50 VBG pH 7.40 VBG pCO2 44 VBG HCO3 26.2 VBG Total CO2 28.7 H VBG O2 Sat (Calc) 88.7 H VBG Base Excess 2.0 VBG Potassium 3.4 L Glucose 126 H Lactate 0.7 FiO2 21.0 Sodium 139.0 Potassium Chloride 105.0 Carbon Dioxide Anion Gap BUN Creatinine Est GFR ( Amer) Est GFR (Non-Af Amer) Random Glucose Calcium Total Bilirubin AST ALT Alkaline Phosphatase Total Protein Albumin Globulin Albumin/Globulin Ratio Venous Blood Potassium 3.4 L Laboratory Results - last 72 hr 08/26/17 08/26/17 08/26/17 23:20 23:20 23:20 WBC 7.7 RBC 4.13 L Hgb 13.2 Hct 39.7 MCV 96.2 H MCH 31.9 H MCHC 33.2 RDW 12.9 Plt Count 174 MPV 10.2 Neut % (Auto) 51.5 Lymph % (Auto) 34.7 Woodward % (Auto) 9.9 Eos % (Auto) 3.2 Baso % (Auto) 0.7 Neut # 4.0 Lymph # 2.7 Woodward # 0.8 Eos # 0.2 Baso # 0.1 PT 11.5 INR 1.0 APTT 30.6 pO2 VBG pH VBG pCO2 VBG HCO3 VBG Total CO2 VBG O2 Sat (Calc) VBG Base Excess VBG Potassium Glucose Lactate FiO2 Sodium 141 Potassium 3.6 Chloride 106 Carbon Dioxide 24 Anion Gap 15 BUN 15 Creatinine 0.9 Est GFR ( Amer) > 60 Est GFR (Non-Af Amer) > 60 Random Glucose 102 Calcium 9.1 Total Bilirubin 1.6 H AST 22 ALT 35 Alkaline Phosphatase 42 Total Protein 7.3 Albumin 4.1 Globulin 3.2 Albumin/Globulin Ratio 1.3 Venous Blood Potassium 08/26/17 23:24 WBC RBC Hgb Hct MCV MCH MCHC RDW Plt Count MPV Neut % (Auto) Lymph % (Auto) Woodward % (Auto) Eos % (Auto) Baso % (Auto) Neut # Lymph # Woodward # Eos # Baso # PT INR APTT pO2 50 VBG pH 7.40 VBG pCO2 44 VBG HCO3 26.2 VBG Total CO2 28.7 H VBG O2 Sat (Calc) 88.7 H VBG Base Excess 2.0 VBG Potassium 3.4 L Glucose 126 H Lactate 0.7 FiO2 21.0 Sodium 139.0 Potassium Chloride 105.0 Carbon Dioxide Anion Gap BUN Creatinine Est GFR ( Amer) Est GFR (Non-Af Amer) Random Glucose Calcium Total Bilirubin AST ALT Alkaline Phosphatase Total Protein Albumin Globulin Albumin/Globulin Ratio Venous Blood Potassium 3.4 L Microbiology 08/24/17 04:36 Urine,Clean Catch Urine Culture - Final Escherichia Coli 08/14/17 10:47 Urine,Catheterized Urine Culture - Final Escherichia Coli 08/03/17 10:40 Urine,Clean Catch Urine Culture - Final No Growth (<1,000 CFU/ML) Accession No. : [id number] Patient Name / ID : DEVENDRA GALO / [id number] Exam Date : 08/26/2017 22:11:53 ( Approved ) Study Comment : Sex / Age : M / 57Y Creator : colleen caraballo Dictator : Jonas Langley MD [employer] Director : [employer] Bander Hand : Jonas Langley MD Approver2 : Report Date : 08/26/2017 22:27:56 My Comment : HISTORY: Admission COMPARISON: Chest radiograph 08/14/2017. FINDINGS: LUNGS: No active pulmonary disease. PLEURA: No significant pleural effusion identified, no pneumothorax apparent. CARDIOVASCULAR: Normal. OSSEOUS STRUCTURES: No significant abnormalities. VISUALIZED UPPER ABDOMEN: Left hemidiaphragm appears mildly elevated. OTHER FINDINGS: None. IMPRESSION: No acute infiltrate or pleural effusion bilaterally. No cardiac disease appreciable. Left hemidiaphragm appears slightly elevated in the interval. Assessment & Plan (1) ESBL (extended spectrum beta-lactamase) producing bacteria infection Status: Acute (2) Acute urinary retention Status: Acute - Assessment and Plan (Free Text) Assessment: A/P- 57 year old male with h/o BPH and urinary retention s/p prostate scraping, and multiple catheterizations in past including suprapubic who is recalled by ED since his most recent urine cx gre ESBL E.coli. pt. is completekly asymptomatic as for UTI symptoms. afebrile adn normal wbc count as well. urine cx- 50-100,000 ESBL E.coli , however there is no Urinalysis. this patient is most likely colonized secondary to multiple ronquillo insertions and procedures in recent past , however, in light of his urinary retention would advise to treat with IV antibiotics at this time to prevent prostatitis. Plan- meropenem already initiated last night as per my advice after discussion with ED doc. would advise to send clean cath Urinalysis and another urine culture . monitor voiding w/o catheter if possible. Length of antibiotic pending clinical response . Thank you for allowing me to take part in the care of this patient. all above d/w patient and he verbalizes full understanding of all above.
[2017-08-27] MEDS: Meropenem 1 GM in Sodium Chloride 0.9% 100 ML IVPB SCH ×2 (10:07→17:09)
--- NOTE | 2017-08-27 11:40 | CP.PCM.PN ---
<Jossy Knapp - Last Filed: 08/27/17 11:38> Subjective - Date & Time of Evaluation Date of Evaluation: 08/27/17 Time of Evaluation: 08:00 - Subjective Subjective: No acute overnight events. Pt seen and evaluated at the bedside this morning. Denies urinary frequency, urgency, dysuria, fever, or chills. Regular BM. No cough, CP, calf pain. 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 No complaints Objective - Vital Signs/Intake and Output Vital Signs (last 24 hours): Temp Pulse Resp BP Pulse Ox 97.9 F 79 20 146/84 95 08/27/17 08:02 08/27/17 08:02 08/27/17 08:02 08/27/17 08:02 08/27/17 08:02 - Medications Medications: Current Medications Meropenem 1 gm/ Sodium (Chloride) 100 mls @ 100 mls/hr IVPB Q8 PAULA PRN Reason: Protocol Stop: 08/28/17 01:59 - Labs Labs: 08/26/17 23:20 08/26/17 23:20 PT 11.5 Seconds (9.8-13.1) 08/26/17 23:20 INR 1.0 (0.9-1.2) 08/26/17 23:20 APTT 30.6 Seconds (25.6-37.1) 08/26/17 23:20 - Constitutional Appears: Well, Non-toxic, No Acute Distress - Head Exam Head Exam: ATRAUMATIC, NORMAL INSPECTION - ENT Exam ENT Exam: Mucous Membranes Moist - Respiratory Exam Respiratory Exam: Clear to Ausculation Bilateral. absent: Chest Wall Tenderness , Rales, Wheezes - Cardiovascular Exam Cardiovascular Exam: REGULAR RHYTHM, +S1, +S2. absent: Murmur - GI/Abdominal Exam GI & Abdominal Exam: Soft. absent: Distended, Firm, Guarding, Tenderness Additional comments: Ronquillo Cath in place - Back Exam Back Exam: absent: CVA tenderness (L), CVA tenderness (R) - Neurological Exam Neurological Exam: Alert, Awake, Oriented x3 - Psychiatric Exam Psychiatric exam: Normal Affect - Skin Skin Exam: Normal Color Assessment and Plan - Assessment and Plan (Free Text) Assessment: 57 years old Male with hx of BPH, under- went Cystoscopy 08/19/[address] Main. The Ronquillo catheter was removed on 08/22/17 in the ED and patient discharged. He returned later the same night because of urinary retention. Ronquillo was reinserted, and Urine Cx positive for ESBL E. Coli. Pt currenty receiving IV ABX. Plan: 57 years old Male with hx of BPH, under- went Cystoscopy 08/19/[address] Main[address] A few hours after removal of the ronquillo catheter, he developed urinary retention . He returned to the ED where a new ronquillo was reinserted and urine sent for culture.The culture grew ESBL E. coli and the patient was called back to the ED to be treated with IV antibiotics. s. #. Complicated UTI with ESBL E.col - Pt does not have urinary symptoms, afebrile, no leukocytosis - Consult Dr Wilson ID- awaiting further recommendations - C/W Meropenem IV - Repeat UCx #. BPH with urinary retention - consult Dr Webberrology - Continue Ronquillo catheter until seen by Urology #. DVT Prophylaxis with SCD #. Code Status: Full <Lana Dunham - Last Filed: 08/27/17 15:12> Objective - Vital Signs/Intake and Output Vital Signs (last 24 hours): Temp Pulse Resp BP Pulse Ox 97.9 F 79 20 146/84 95 08/27/17 08:02 08/27/17 08:02 08/27/17 08:02 08/27/17 08:02 08/27/17 08:02 - Medications Medications: Current Medications Meropenem 1 gm/ Sodium (Chloride) 100 mls @ 100 mls/hr IVPB Q8 PAULA PRN Reason: Protocol Stop: 08/28/17 01:59 Last Admin: 08/27/17 10:07 Dose: 100 mls/hr - Labs Labs: 08/26/17 23:20 08/26/17 23:20 PT 11.5 Seconds (9.8-13.1) 08/26/17 23:20 INR 1.0 (0.9-1.2) 08/26/17 23:20 APTT 30.6 Seconds (25.6-37.1) 08/26/17 23:20 Attending/Attestation - Attestation I have personally seen and examined this patient.: Yes I have fully participated in the care of the patient.: Yes I have reviewed all pertinent clinical information, including history, physical exam and plan: Yes Notes (Text): 08/27/17 15:09 ESBL E Coli UTI - cont IV Meropenem - ID consulted Urethral Stricture s/p Cystoscopy - pt reviously had Suprapubic catheter - now d/c - still with Urinary retention - Ronquillo Catheter in place - Urology consult - Dr Main
[2017-08-28] MEDS: Meropenem 1 GM in Sodium Chloride 0.9% 100 ML IVPB SCH (00:37)
[2017-08-28] MEDS ORDERED: Oxycodone/Acetaminophen 5/325 mg Tab PO PRN (03:22)
[2017-08-28 06:28] LABS: RBC URINE 5 /hpf (0-3); URINE BACTERIA OCC (<OCC); URINE BILIRUBIN NEGATIVE (NEGATIVE); URINE BLOOD LARGE (NEGATIVE); URINE COLOR YELLOW (YELLOW); URINE GLUCOSE (UA) NEG (Normal); URINE KETONE NEGATIVE (NEGATIVE); URINE LEUKOCYTE ESTERASE LARGE Leu/uL (Negative); URINE PROTEIN 30 mg/dL (NEGATIVE); URINE UROBILINOGEN 0.2-1.0 mg/dL (0.2-1.0); WBC URINE 18 /hpf (0-5)
[2017-08-28] MEDS ORDERED: Meropenem 500 MG in Sodium Chloride 0.9% 100 ML IVPB SCH ×2 (09:00→13:00)
--- NOTE | 2017-08-28 11:03 | CP.PCM.PN ---
Subjective - Date & Time of Evaluation Date of Evaluation: 08/28/17 Time of Evaluation: 08:00 - Subjective Subjective: Overnight pt complaints of abdominal pain and distension. Altough he had been voiding minimally, pt reports that he did not feel like he voided completely. Bladder scan showed ~700cc, pt was straight cath and put out 1300cc of urine. Given 1x morphine for pain and started on Pyridium by Urologist, Dr. Main. This morning, pt reports feeling relieved. States he normally straight caths himself at home, for the past 6 months as he is unable to void completely. Denies abdominal pain, dysuria, flank pain, fever, chills. Ambulating. Objective - Vital Signs/Intake and Output Vital Signs (last 24 hours): Temp Pulse Resp BP Pulse Ox 97.6 F 63 20 163/89 H 97 08/28/17 07:44 08/28/17 07:44 08/28/17 07:44 08/28/17 07:44 08/28/17 07:44 - Medications Medications: Current Medications Acetaminophen (Tylenol 325mg Tab) 650 mg PO Q6 PRN PRN Reason: Pain, Mild (1-3) Meropenem 500 mg/ Sodium (Chloride) 100 mls @ 100 mls/hr IVPB Q8 PAULA PRN Reason: Protocol Oxycodone/Acetaminophen (Percocet 5/325 Mg Tab) 1 tab PO Q6 PRN PRN Reason: Pain, moderate (4-7) Stop: 08/31/17 03:23 Last Admin: 08/28/17 03:49 Dose: 1 tab Phenazopyridine HCl (Pyridium) 200 mg PO BID [facility] Last Admin: 08/28/17 09:15 Dose: 200 mg Tamsulosin HCl (Flomax) 0.4 mg PO DAILY [facility] Last Admin: 08/28/17 09:15 Dose: 0.4 mg - Labs Labs: 08/26/17 23:20 08/26/17 23:20 PT 11.5 Seconds (9.8-13.1) 08/26/17 23:20 INR 1.0 (0.9-1.2) 08/26/17 23:20 APTT 30.6 Seconds (25.6-37.1) 08/26/17 23:20 - Constitutional Appears: Well, Non-toxic, No Acute Distress - Head Exam Head Exam: ATRAUMATIC, NORMAL INSPECTION - ENT Exam ENT Exam: Mucous Membranes Moist - Respiratory Exam Respiratory Exam: Clear to Ausculation Bilateral. absent: Rales, Wheezes - Cardiovascular Exam Cardiovascular Exam: REGULAR RHYTHM, +S1, +S2. absent: Murmur - GI/Abdominal Exam GI & Abdominal Exam: Distended, Normal Bowel Sounds. absent: Firm, Soft, Tenderness - Extremities Exam Extremities Exam: absent: Calf Tenderness, Pedal Edema - Back Exam Back Exam: absent: CVA tenderness (L), CVA tenderness (R) - Neurological Exam Neurological Exam: Alert, Awake, Oriented x3 - Psychiatric Exam Psychiatric exam: Normal Affect - Skin Skin Exam: Normal Color Assessment and Plan - Assessment and Plan (Free Text) Assessment: 57 years old Male with hx of BPH, under- went Cystoscopy 08/19/[address] Main. A few hours after removal of the ronquillo catheter, he developed urinary retention . He returned to the ED where a new ronquillo was reinserted and urine sent for culture.The culture grew ESBL E. coli and the patient was called back to the ED to be treated with IV antibiotics. #. Complicated UTI with ESBL E.col - Pt does not have urinary symptoms, afebrile, no leukocytosis - Consulted Dr Wilson ID- C/w ABX; colonization likely secondary to repeat ronquillo insertions; advised to send clean cath U/A and UCx - C/W Meropenem IV - F/U repeat Ucx and U/A, clean cath #. BPH with urinary retention - Consult Dr Main, Urology - Ronquillo removed yesterday, pt still has urinary retention. Straight cath as needed - Flomax, recieved 2nd dose today #. DVT Prophylaxis with SCD #. Code Status: Full
--- NOTE | 2017-08-28 11:28 | CARD ---
APPROVED REPORT EKG Measurement Heart [id number] <Conclusion> Normal sinus rhythm Nonspecific ST abnormality Abnormal ECG
--- NOTE | 2017-08-28 12:02 | CP.PCM.PN ---
Subjective - Date & Time of Evaluation Date of Evaluation: 08/28/17 Time of Evaluation: 12:02 - Subjective Subjective: patient seen and examined today. He states he had to be straight cath last night for urination but states today so far he has been able to urinate on his own w/o difficulty. patient states he wishes to go home and he was cleared by for d/c home. Objective - Vital Signs/Intake and Output Vital Signs (last 24 hours): Temp Pulse Resp BP Pulse Ox 97.6 F 63 20 163/89 H 97 08/28/17 07:44 08/28/17 07:44 08/28/17 07:44 08/28/17 07:44 08/28/17 07:44 - Medications Medications: Current Medications Acetaminophen (Tylenol 325mg Tab) 650 mg PO Q6 PRN PRN Reason: Pain, Mild (1-3) Meropenem 500 mg/ Sodium (Chloride) 100 mls @ 100 mls/hr IVPB Q8 PAULA PRN Reason: Protocol Oxycodone/Acetaminophen (Percocet 5/325 Mg Tab) 1 tab PO Q6 PRN PRN Reason: Pain, moderate (4-7) Stop: 08/31/17 03:23 Last Admin: 08/28/17 03:49 Dose: 1 tab Phenazopyridine HCl (Pyridium) 200 mg PO BID [facility] Last Admin: 08/28/17 09:15 Dose: 200 mg Tamsulosin HCl (Flomax) 0.4 mg PO DAILY [facility] Last Admin: 08/28/17 09:15 Dose: 0.4 mg - Labs Labs: - Additional Findings Additional findings: - Constitutional Appears: Non-toxic, No Acute Distress - Head Exam Head Exam: ATRAUMATIC - Eye Exam Eye Exam: EOMI - ENT Exam ENT Exam: Normal Oropharynx - Neck Exam Neck exam: Positive for: Full Rom - Respiratory Exam Respiratory Exam: Clear to Auscultation Bilateral, NORMAL BREATHING PATTERN - Cardiovascular Exam Cardiovascular Exam: RRR, +S1, +S2 - GI/Abdominal Exam GI & Abdominal Exam: Normal Bowel Sounds, Soft Additional comments: NT, ND no guarding, no rebound NO CVA tenderness b/l - Extremities Exam Extremities exam: Positive for: normal inspection - Neurological Exam Neurological exam: Alert, Oriented x 3 Laboratory Results - last 72 hr 08/26/17 08/26/17 08/26/17 23:20 23:20 23:20 WBC 7.7 RBC 4.13 L Hgb 13.2 Hct 39.7 MCV 96.2 H MCH 31.9 H MCHC 33.2 RDW 12.9 Plt Count 174 MPV 10.2 Neut % (Auto) 51.5 Lymph % (Auto) 34.7 [place] % (Auto) 9.9 Eos % (Auto) 3.2 Baso % (Auto) 0.7 Neut # 4.0 Lymph # 2.7 [place] # 0.8 Eos # 0.2 Baso # 0.1 PT 11.5 INR 1.0 APTT 30.6 pO2 VBG pH VBG pCO2 VBG HCO3 VBG Total CO2 VBG O2 Sat (Calc) VBG Base Excess VBG Potassium Glucose Lactate FiO2 Sodium 141 Potassium 3.6 Chloride 106 Carbon Dioxide 24 Anion Gap 15 BUN 15 Creatinine 0.9 Est GFR ( Amer) > 60 Est GFR (Non-Af Amer) > 60 Random Glucose 102 Calcium 9.1 Total Bilirubin 1.6 H AST 22 ALT 35 Alkaline Phosphatase 42 Total Protein 7.3 Albumin 4.1 Globulin 3.2 Albumin/Globulin Ratio 1.3 Venous Blood Potassium Urine Color Urine Clarity Urine pH Ur Specific [place] Urine Protein Urine Glucose (UA) Urine Ketones Urine Blood Urine Nitrate Urine Bilirubin Urine Urobilinogen Ur Leukocyte Esterase Urine RBC (Auto) Urine Microscopic WBC Ur Squamous Epith Cells Urine Bacteria 08/26/17 08/27/17 23:24 06:00 WBC RBC Hgb Hct MCV MCH MCHC RDW Plt Count MPV Neut % (Auto) Lymph % (Auto) [place] % (Auto) Eos % (Auto) Baso % (Auto) Neut # Lymph # [place] # Eos # Baso # PT INR APTT pO2 50 VBG pH 7.40 VBG pCO2 44 VBG HCO3 26.2 VBG Total CO2 28.7 H VBG O2 Sat (Calc) 88.7 H VBG Base Excess 2.0 VBG Potassium 3.4 L Glucose 126 H Lactate 0.7 FiO2 21.0 Sodium 139.0 Potassium Chloride 105.0 Carbon Dioxide Anion Gap BUN Creatinine Est GFR ( Amer) Est GFR (Non-Af Amer) Random Glucose Calcium Total Bilirubin AST ALT Alkaline Phosphatase Total Protein Albumin Globulin Albumin/Globulin Ratio Venous Blood Potassium 3.4 L Urine Color Yellow Urine Clarity Slighty-cloudy Urine pH 7.0 Ur Specific [place] 1.006 Urine Protein 30 Urine Glucose (UA) Neg Urine Ketones Negative Urine Blood Large Urine Nitrate Negative Urine Bilirubin Negative Urine Urobilinogen 0.2-1.0 Ur Leukocyte Esterase Large Urine RBC (Auto) 5 H Urine Microscopic WBC 18 H Ur Squamous Epith Cells < 1 Urine Bacteria Occ H Microbiology 08/27/17 10:50 Blood Blood Culture - Preliminary NO GROWTH AFTER 24 HOURS 08/27/17 10:30 Blood Blood Culture - Preliminary NO GROWTH AFTER 24 HOURS Microbiology 08/24/17 04:36 Urine,Clean Catch Urine Culture - Final Escherichia Coli 08/14/17 10:47 Urine,Catheterized Urine Culture - Final Escherichia Coli Assessment and Plan (1) ESBL (extended spectrum beta-lactamase) producing bacteria infection Status: Acute (2) Acute urinary retention Status: Acute - Assessment and Plan (Free Text) Assessment: A/P- 57 year old male with h/o BPH and urinary retention s/p prostate scraping, and multiple catheterizations in past including suprapubic who is recalled by ED since his most recent urine cx gre ESBL E.coli. afebrile normal wbc count UA- pos urine cx- ESBL e.coli blood cx- neg x 2 Plan- day #2 of meropenem for ESBL e.coli UTI. advise to mikal of 10 days of IV abx for tx of this esbl UTI specially in light of recent catheterizations and cystoscopy. If patient is being d/c home would advise to d/c on IV Ertapenem 1 Gram IV daily for 10 days. check repeat UA and urine cx after completion of iv abx as outpatient by his and PCP. all above d/w patient and .
--- NOTE | 2017-08-28 14:25 | CP.PCM.DIS ---
<Jossy Knapp - Last Filed: 08/28/17 14:55> Provider - Provider Date of Admission: 08/26/17 22:59 Attending physician: Berry Sutherland Time Spent in preparation of Discharge (in minutes): 30 Hospital Course - Lab Results Lab Results: Micro Results 08/27/17 10:50 Blood Blood Culture - Preliminary NO GROWTH AFTER 24 HOURS 08/27/17 10:30 Blood Blood Culture - Preliminary NO GROWTH AFTER 24 HOURS Most Recent Lab Values WBC 7.7 K/uL (4.8-10.8) 08/26/17 23:20 RBC 4.13 Mil/uL (4.40-5.90) L 08/26/17 23:20 Hgb 13.2 g/dL (12.0-18.0) 08/26/17 23:20 Hct 39.7 % (35.0-51.0) 08/26/17 23:20 MCV 96.2 fl (80.0-94.0) H 08/26/17 23:20 MCH 31.9 pg (27.0-31.0) H 08/26/17 23:20 MCHC 33.2 g/dL (33.0-37.0) 08/26/17 23:20 RDW 12.9 % (11.5-14.5) 08/26/17 23:20 Plt Count 174 K/uL (130-400) 08/26/17 23:20 MPV 10.2 fl (7.2-11.7) 08/26/17 23:20 Neut % (Auto) 51.5 % (50.0-75.0) 08/26/17 23:20 Lymph % (Auto) 34.7 % (20.0-40.0) 08/26/17 23:20 [place] % (Auto) 9.9 % (0.0-10.0) 08/26/17 23:20 Eos % (Auto) 3.2 % (0.0-4.0) 08/26/17 23:20 Baso % (Auto) 0.7 % (0.0-2.0) 08/26/17 23:20 Neut # 4.0 K/uL (1.8-7.0) 08/26/17 23:20 Lymph # 2.7 K/uL (1.0-4.3) 08/26/17 23:20 [place] # 0.8 K/uL (0.0-0.8) 08/26/17 23:20 Eos # 0.2 K/uL (0.0-0.7) 08/26/17 23:20 Baso # 0.1 K/uL (0.0-0.2) 08/26/17 23:20 PT 11.5 Seconds (9.8-13.1) 08/26/17 23:20 INR 1.0 (0.9-1.2) 08/26/17 23:20 APTT 30.6 Seconds (25.6-37.1) 08/26/17 23:20 pO2 50 mm/Hg (30-55) 08/26/17 23:24 VBG pH 7.40 (7.32-7.43) 08/26/17 23:24 VBG pCO2 44 mmHg (40-60) 08/26/17 23:24 VBG HCO3 26.2 mmol/L 08/26/17 23:24 VBG Total CO2 28.7 mmol/L (22-28) H 08/26/17 23:24 VBG O2 Sat (Calc) 88.7 % (40-65) H 08/26/17 23:24 VBG Base Excess 2.0 mmol/L (0.0-2.0) 08/26/17 23:24 VBG Potassium 3.4 mmol/L (3.6-5.2) L 08/26/17 23:24 Sodium 139.0 mmol/L (132-148) 08/26/17 23:24 Chloride 105.0 mmol/L (98-107) 08/26/17 23:24 Glucose 126 mg/dL (75-110) H 08/26/17 23:24 Lactate 0.7 mmol/L (0.7-2.1) 08/26/17 23:24 FiO2 21.0 % 08/26/17 23:24 Sodium 141 mmol/l (132-148) 08/26/17 23:20 Potassium 3.6 MMOL/L (3.6-5.0) 08/26/17 23:20 Chloride 106 mmol/L (98-107) 08/26/17 23:20 Carbon Dioxide 24 mmol/L (22-30) 08/26/17 23:20 Anion Gap 15 (10-20) 08/26/17 23:20 BUN 15 mg/dl (9-20) 08/26/17 23:20 Creatinine 0.9 mg/dl (0.8-1.5) 08/26/17 23:20 Est GFR ( Amer) > 60 08/26/17 23:20 Est GFR (Non-Af Amer) > 60 08/26/17 23:20 Random Glucose 102 mg/dL (75-110) 08/26/17 23:20 Calcium 9.1 mg/dL (8.4-10.2) 08/26/17 23:20 Total Bilirubin 1.6 mg/dl (0.2-1.3) H 08/26/17 23:20 AST 22 U/L (17-59) 08/26/17 23:20 ALT 35 U/L (21-72) 08/26/17 23:20 Alkaline Phosphatase 42 U/L (38-126) 08/26/17 23:20 Total Protein 7.3 G/DL (6.3-8.2) 08/26/17 23:20 Albumin 4.1 g/dL (3.5-5.0) 08/26/17 23:20 Globulin 3.2 gm/dL (2.2-3.9) 08/26/17 23:20 Albumin/Globulin Ratio 1.3 (1.0-2.1) 08/26/17 23:20 Venous Blood Potassium 3.4 mmol/L (3.6-5.2) L 08/26/17 23:24 Urine Color Yellow (YELLOW) 08/27/17 06:00 Urine Clarity Slighty-cloudy (Clear) 08/27/17 06:00 Urine pH 7.0 (5.0-8.0) 08/27/17 06:00 Ur Specific [place] 1.006 (1.003-1.030) 08/27/17 06:00 Urine Protein 30 mg/dL (NEGATIVE) 08/27/17 06:00 Urine Glucose (UA) Neg mg/dL (Normal) 08/27/17 06:00 Urine Ketones Negative mg/dL (NEGATIVE) 08/27/17 06:00 Urine Blood Large (NEGATIVE) 08/27/17 06:00 Urine Nitrate Negative (NEGATIVE) 08/27/17 06:00 Urine Bilirubin Negative (NEGATIVE) 08/27/17 06:00 Urine Urobilinogen 0.2-1.0 mg/dL (0.2-1.0) 08/27/17 06:00 Ur Leukocyte Esterase Large Edy/uL (Negative) 08/27/17 06:00 Urine RBC (Auto) 5 /hpf (0-3) H 08/27/17 06:00 Urine Microscopic WBC 18 /hpf (0-5) H 08/27/17 06:00 Ur Squamous Epith Cells < 1 /hpf (0-5) 08/27/17 06:00 Urine Bacteria Occ (<OCC) H 08/27/17 06:00 - Hospital Course Hospital Course: Admission Date: 08/26/17 Discharge Diagnosis: UTI, Urinary Retention Hospital Course: Pt is a 57 y/o male with hx of BPH recently underwent a cystoscopy on 08/19 presenting with urinary retention and found to have urine culture positive for ESBL producing E. Coli. Pt did not have infectious urinary symptoms, afebrile, with no leukocytosis. He was treated with Meropenem as per Infectious Disease. Heredia was placed on admission and removed on Day 2 of hospital stay. Pt initially had difficulty voiding but was able to void without difficulty by Day 3. On day of discharge, pt was voiding freely and was advised to intermittently straight cath only if absolutely necessary. Seen by Urologist Dr. Main during his stay. Pt was discharged on Flomax. Will return daily for 10days for IV ABX. Discharge Medications: Ertapenem Sodium (Invance) 1gm IV daily x 10days Tamsulosin (Flomax) 0.4 mg PO Daily Condition upon discharge: Fair Activity: Ambulating without assistance Discharge Instruction: F/U with [facility], Dr. Knapp, on September 03 2:30pm and Urologist Dr. Main within 1 week. Pt made aware and verbalized understanding. Return to hospital (Same Day Surgery, 7th floor) daily for 10 days for IV Invance infusion. On weekends and holidays, patient will receive infusion in the ED. Discharge Exam - Head Exam Head Exam: ATRAUMATIC, NORMAL INSPECTION - ENT Exam ENT Exam: Mucous Membranes Moist - Respiratory Exam Respiratory Exam: Clear to PA & Lateral. absent: Accessory Muscle Use, Rales, Wheezes - Cardiovascular Exam Cardiovascular Exam: REGULAR RHYTHM, +S1, +S2. absent: Systolic Murmur - GI/Abdominal Exam GI & Abdominal Exam: Normal Bowel Sounds, Soft. absent: Tenderness - Back Exam Back exam: absent: CVA tenderness (L), CVA tenderness (R) - Neurological Exam Neurological exam: Alert, Oriented x3 - Psychiatric Exam Psychiatric exam: Normal Affect - Skin Skin Exam: Normal Color Discharge Plan - Discharge Medications Prescriptions: Ertapenem Sodium [Invanz] 1 gm IV DAILY 10 Days #10 vial.port Tamsulosin [Flomax] 0.4 mg PO DAILY #30 cap - Follow Up Plan Condition: STABLE Disposition: HOME/ ROUTINE Instructions: Heredia Catheter Placement and Care (DC), Extended Spectrum Beta Lactamase (GEN) Additional Instructions: follow up FP clinic in 1 wk make appt with Dr Main in 1 wk Return to the Same Day Unit daily for IV antibiotic infusion ( Invanz 1 gram daily x 10 days) [facility] para recibir infusion antibiotico Referrals: Alexsandra Main MD [Medical Doctor] - <Lana Dunham - Last Filed: 08/28/17 15:07> Provider - Provider Date of Admission: 08/26/17 22:59 Attending physician: [facility] Course - Lab Results Lab Results: Micro Results 08/27/17 10:50 Blood Blood Culture - Preliminary NO GROWTH AFTER 24 HOURS 08/27/17 10:30 Blood Blood Culture - Preliminary NO GROWTH AFTER 24 HOURS Most Recent Lab Values WBC 7.7 K/uL (4.8-10.8) 08/26/17 23:20 RBC 4.13 Mil/uL (4.40-5.90) L 08/26/17 23:20 Hgb 13.2 g/dL (12.0-18.0) 08/26/17 23:20 Hct 39.7 % (35.0-51.0) 08/26/17 23:20 MCV 96.2 fl (80.0-94.0) H 08/26/17 23:20 MCH 31.9 pg (27.0-31.0) H 08/26/17 23:20 MCHC 33.2 g/dL (33.0-37.0) 08/26/17 23:20 RDW 12.9 % (11.5-14.5) 08/26/17 23:20 Plt Count 174 K/uL (130-400) 08/26/17 23:20 MPV 10.2 fl (7.2-11.7) 08/26/17 23:20 Neut % (Auto) 51.5 % (50.0-75.0) 08/26/17 23:20 Lymph % (Auto) 34.7 % (20.0-40.0) 08/26/17 23:20 [place] % (Auto) 9.9 % (0.0-10.0) 08/26/17 23:20 Eos % (Auto) 3.2 % (0.0-4.0) 08/26/17 23:20 Baso % (Auto) 0.7 % (0.0-2.0) 08/26/17 23:20 Neut # 4.0 K/uL (1.8-7.0) 08/26/17 23:20 Lymph # 2.7 K/uL (1.0-4.3) 08/26/17 23:20 [place] # 0.8 K/uL (0.0-0.8) 08/26/17 23:20 Eos # 0.2 K/uL (0.0-0.7) 08/26/17 23:20 Baso # 0.1 K/uL (0.0-0.2) 08/26/17 23:20 PT 11.5 Seconds (9.8-13.1) 08/26/17 23:20 INR 1.0 (0.9-1.2) 08/26/17 23:20 APTT 30.6 Seconds (25.6-37.1) 08/26/17 23:20 pO2 50 mm/Hg (30-55) 08/26/17 23:24 VBG pH 7.40 (7.32-7.43) 08/26/17 23:24 VBG pCO2 44 mmHg (40-60) 08/26/17 23:24 VBG HCO3 26.2 mmol/L 08/26/17 23:24 VBG Total CO2 28.7 mmol/L (22-28) H 08/26/17 23:24 VBG O2 Sat (Calc) 88.7 % (40-65) H 08/26/17 23:24 VBG Base Excess 2.0 mmol/L (0.0-2.0) 08/26/17 23:24 VBG Potassium 3.4 mmol/L (3.6-5.2) L 08/26/17 23:24 Sodium 139.0 mmol/L (132-148) 08/26/17 23:24 Chloride 105.0 mmol/L (98-107) 08/26/17 23:24 Glucose 126 mg/dL (75-110) H 08/26/17 23:24 Lactate 0.7 mmol/L (0.7-2.1) 08/26/17 23:24 FiO2 21.0 % 08/26/17 23:24 Sodium 141 mmol/l (132-148) 08/26/17 23:20 Potassium 3.6 MMOL/L (3.6-5.0) 08/26/17 23:20 Chloride 106 mmol/L (98-107) 08/26/17 23:20 Carbon Dioxide 24 mmol/L (22-30) 08/26/17 23:20 Anion Gap 15 (10-20) 08/26/17 23:20 BUN 15 mg/dl (9-20) 08/26/17 23:20 Creatinine 0.9 mg/dl (0.8-1.5) 08/26/17 23:20 Est GFR ( Amer) > 60 08/26/17 23:20 Est GFR (Non-Af Amer) > 60 08/26/17 23:20 Random Glucose 102 mg/dL (75-110) 08/26/17 23:20 Calcium 9.1 mg/dL (8.4-10.2) 08/26/17 23:20 Total Bilirubin 1.6 mg/dl (0.2-1.3) H 08/26/17 23:20 AST 22 U/L (17-59) 08/26/17 23:20 ALT 35 U/L (21-72) 08/26/17 23:20 Alkaline Phosphatase 42 U/L (38-126) 08/26/17 23:20 Total Protein 7.3 G/DL (6.3-8.2) 08/26/17 23:20 Albumin 4.1 g/dL (3.5-5.0) 08/26/17 23:20 Globulin 3.2 gm/dL (2.2-3.9) 08/26/17 23:20 Albumin/Globulin Ratio 1.3 (1.0-2.1) 08/26/17 23:20 Venous Blood Potassium 3.4 mmol/L (3.6-5.2) L 08/26/17 23:24 Urine Color Yellow (YELLOW) 08/27/17 06:00 Urine Clarity Slighty-cloudy (Clear) 08/27/17 06:00 Urine pH 7.0 (5.0-8.0) 08/27/17 06:00 Ur Specific [place] 1.006 (1.003-1.030) 08/27/17 06:00 Urine Protein 30 mg/dL (NEGATIVE) 08/27/17 06:00 Urine Glucose (UA) Neg mg/dL (Normal) 08/27/17 06:00 Urine Ketones Negative mg/dL (NEGATIVE) 08/27/17 06:00 Urine Blood Large (NEGATIVE) 08/27/17 06:00 Urine Nitrate Negative (NEGATIVE) 08/27/17 06:00 Urine Bilirubin Negative (NEGATIVE) 08/27/17 06:00 Urine Urobilinogen 0.2-1.0 mg/dL (0.2-1.0) 08/27/17 06:00 Ur Leukocyte Esterase Large Edy/uL (Negative) 08/27/17 06:00 Urine RBC (Auto) 5 /hpf (0-3) H 08/27/17 06:00 Urine Microscopic WBC 18 /hpf (0-5) H 08/27/17 06:00 Ur Squamous Epith Cells < 1 /hpf (0-5) 08/27/17 06:00 Urine Bacteria Occ (<OCC) H 08/27/17 06:00 Attending/Attestation - Attestation I have personally seen and examined this patient.: Yes I have fully participated in the care of the patient.: Yes I have reviewed all pertinent clinical information, including history, physical exam and plan: Yes Notes (Text): Discharge Diagnosis: 1. ESBL UTI 2. Urinary Retention - Return to the Hospital daily x 10 days for IV antibiotic infusion - InVanz 1 gram daily -ff up with Dr Hogue and at the clinic in 1 wk - Intermittent Catheterization prn - at present pt is voiding freely ( was provided with Straight catheter- was previously doing this prior to the Urethral procedure )
[2017-08-28] MEDS ORDERED: ERTAPENEM 1 GM IVPB STA (14:50)
[2017-08-28 16:09] VITALS: BP 157/78; PULSE 68; RESP 18; TEMP 98.3; O2SAT 95
== END 2017-08-28 18:00 | disposition home or self-care (01) | DRG 820 ==
LOC: H.ER 20:24 → H.ERHOLD 22:59 → H.MEDSURG1 08-27 02:15
PROVIDERS: ADMIT Internal Medicine; ATTEND Internal Medicine
PROC: 3E0234Z Introduction of Serum, Toxoid and Vaccine into Muscle, Percutaneous Approach (ICD-10-PCS; principal; 2017-08-27)
DX: T83.511A Infection and inflammatory reaction due to indwelling urethral catheter, initial encounter (principal); B96.20 Unspecified Escherichia coli [E. coli] as the cause of diseases classified elsewhere; N39.0 Urinary tract infection, site not specified; Y84.6 Urinary catheterization as the cause of abnormal reaction of the patient, or of later complication, without mention of misadventure at the time of the procedure; Z16.12 Extended spectrum beta lactamase (ESBL) resistance; Z87.891 Personal history of nicotine dependence; N40.1 Benign prostatic hyperplasia with lower urinary tract symptoms; R33.8 Other retention of urine; Z23 Encounter for immunization

== ENCOUNTER 2018-03-15 23:52 | Emergency (ER) | payer SELFPAY ==
[2018-03-15 23:52] VITALS: BMI 33.4
[2018-03-16 00:17] VITALS: RESP 18
--- NOTE | 2018-03-16 01:02 | ED PDOC ---
HPI: Male Pain Chief Complaint (Provider): Urinary retention/Dysuria History Per: Patient History/Exam Limitations: no limitations Onset/Duration Of Symptoms: Hrs Current Symptoms Are (Timing): Still Present Severity: Moderate Quality Of Discomfort: Burning, "Pain" Associated Symptoms: Urinary Symptoms Alleviating Factors: Other (Voiding) Additional History Per: Patient Additional Complaint(s): 57 y/o M with PMhx of BPH and UTI presents c/o difficulty urinating and dysuria since this morning. As per patient he is able to void but only small amounts and he feels his bladder full, has suprapubic pain and burning with urination. Denies dizziness, diarrhea, hematuria, fever, diarrhea. Admits drinking about 8 beers last night. Denies recent trauma. He is not taking any medications at this time. <Humble Castle - Last Filed: 03/16/18 01:16> <Jen Yates - Last Filed: 03/16/18 10:59> Time Seen by Provider: 03/16/18 00:44 Chief Complaint (Nursing): Male Genitourinary Supervising Attending Note - Supervising Attending Note The Documented history was done by the: Physician Director Digital Strategy, Attending Physician The documented physical exam was done by the: Physician Director Digital Strategy, Attending Physician The documented procedures were done by the: Physician Director Digital Strategy, Attending Physician - Attestation: I have personally seen and examined this patient.: Yes I have fully participated in the care of the patient.: Yes I have reviewed all pertinent clinical information, including history, physical exam and plan: Yes <Jen Yates - Last Filed: 03/16/18 10:59> Past Medical History Vital Signs: Last Vital Signs Temp 98 F 03/16/18 00:10 Pulse 69 03/16/18 00:10 Resp 18 03/16/18 00:10 BP 188/96 H 03/16/18 00:10 Pulse Ox 97 03/16/18 00:10 - Medical History PMH: Benign Prostatic Hyperplasia, HTN Denies: Chronic Kidney Disease - Family History Family History: States: Unknown Family Hx <Humble Castle - Last Filed: 03/16/18 01:16> Reviewed: Historical Data, Nursing Documentation, Vital Signs Vital Signs: Last Vital Signs Temp 98.3 F 03/16/18 09:10 Pulse 78 03/16/18 09:10 Resp 18 03/16/18 09:10 BP 140/77 03/16/18 09:10 Pulse Ox 100 03/16/18 09:10 - Surgical History Surgical History: No Surg Hx <Jen Yates - Last Filed: 03/16/18 10:59> - Home Medications Home Medications: Ambulatory Orders Medication Instructions Recorded Ertapenem Sodium [Invanz] 1 gm IV DAILY 10 Days #10 vial.port 08/28/17 Tamsulosin HCl [Flomax] 0.4 mg PO DAILY 09/04/17 Ciprofloxacin HCl [Cipro] 500 mg PO BID #20 tab 03/16/18 - Allergies Allergies/Adverse Reactions: Allergies Allergy/AdvReac Type Severity Reaction Status Date / Time No Known Allergies Allergy Verified 08/29/17 09:11 Review of Systems ROS Statement: Except As Marked, All Systems Reviewed And Found Negative Genitourinary Male: Positive for: Dysuria, Frequency, Other (Urgency) <Humble Castle - Last Filed: 03/16/18 01:16> ROS Statement: Except As Marked, All Systems Reviewed And Found Negative <Jen Yates - Last Filed: 03/16/18 10:59> Physical Exam - Physical Exam Appears: Positive for: Well, Non-toxic, No Acute Distress Head Exam: Positive for: ATRAUMATIC, NORMAL INSPECTION Skin: Positive for: Normal Color, Warm Cardiovascular/Chest: Positive for: Regular Rate, Rhythm, Chest Non Tender. Negative for: Edema, Murmur Respiratory: Positive for: Normal Breath Sounds. Negative for: Decreased Breath Sounds, Crackles, Rales, Rhonchi, Stridor, Wheezing, Respiratory Distress Gastrointestinal/Abdominal: Positive for: Soft, Tenderness (suprapubic), Distended (Suprapubic). Negative for: Guarding, Rebound Male Genital Exam: Positive for: normal genitalia. Negative for: lesions Extremity: Positive for: Normal ROM. Negative for: Pedal Edema, Calf Tenderness , Swelling Neurologic/Psych: Positive for: Alert, Oriented. Negative for: Motor/Sensory Deficits, Aphasia <Humble Castle - Last Filed: 03/16/18 01:16> - Reviewed Nursing Documentation Reviewed: Yes Vital Signs Reviewed: Yes <Jen Yates - Last Filed: 03/16/18 10:59> - ECG O2 Sat by Pulse Oximetry: 97 - Progress ED Course And Treament: 1092 ml on bladder scan Heredia cath ordered <Humble Castle - Last Filed: 03/16/18 01:16> - Laboratory Results Result Diagrams: 03/16/18 03:05 03/16/18 03:05 <Jen Yates - Last Filed: 03/16/18 10:59> Medical Decision Making Medical Decision Makin57 y/o M presents with difficulty urinating and dysuria Bladder scan Urinedip Flomax <Humble Castle - Last Filed: 03/16/18 01:16> Medical Decision Makin Discussed with Dr Main who will see patient in ED> <Jen Yates - Last Filed: 03/16/18 10:59> Disposition <Humble Castle - Last Filed: 03/16/18 01:16> - Patient ED Disposition Is Patient to be Admitted: Transfer of Care Counseled Patient/Family Regarding: Studies Performed, Diagnosis - Disposition Disposition: Transfer of Care Disposition Time: 07:00 Patient Signed Over To: Deny Hutchinson <Jen Yates - Last Filed: 03/16/18 10:59> - Clinical Impression Clinical Impression: Acute urinary retention - Disposition Referrals: Alexsandra Main MD [Medical Doctor] - Condition: STABLE Prescriptions: Ciprofloxacin HCl [Cipro] 500 mg PO BID #20 tab Instructions: Urinary Retention
[2018-03-16 03:13] LABS: BASO # 0.1 K/uL (0.0-0.2); BASO % 0.4 % (0.0-2.0); EOS # 0.2 K/uL (0.0-0.7); EOS % 1.5 % (0.0-4.0); HEMOGLOBIN 15.2 g/dL (12.0-18.0); LYMPH # 2.9 K/uL (1.0-4.3); LYMPH % 21.5 % (20.0-40.0); MEAN CELL VOLUME 94.3 fl (80.0-94.0); MEAN CORPUSCULAR HEMOGLOBIN 31.9 pg (27.0-31.0); MEAN CORPUSCULAR HGB CONC 33.8 g/dL (33.0-37.0); MEAN PLATELET VOLUME 9.9 fl (7.2-11.7); MONO # 1.2 K/uL (0.0-0.8); MONO % 9.1 % (0.0-10.0); NEUT # 9.2 K/uL (1.8-7.0); NEUT % 67.5 % (50.0-75.0); NRBC % 0.1 % (0.0-0.0); RBC 4.77 Mil/uL (4.40-5.90); RED CELL DISTRIBUTION WIDTH 13.8 % (11.5-14.5); WHITE BLOOD COUNT 13.7 K/uL (4.8-10.8)
[2018-03-16 03:19] LABS: BLOOD UREA NITROGEN 17 mg/dl (9-20); CALCIUM 9.6 mg/dL (8.4-10.2); GFR AFRICAN-AMERICAN > 60; GFR NON-AFRICAN AMERICAN > 60
[2018-03-16] MEDS ORDERED: Lidocaine 1% Inj (20ml) ONE (06:28)
--- NOTE | 2018-03-16 08:24 | ED PDOC ---
- Laboratory Results Result Diagrams: 03/16/18 03:05 03/16/18 03:05 - ECG O2 Sat by Pulse Oximetry: 98 Disposition - Clinical Impression Clinical Impression: Acute urinary retention - POA Present On Arrival: None - Disposition Referrals: Alexsandra Main MD [Medical Doctor] - Disposition: Routine/Home Disposition Time: 08:23 Condition: FAIR Prescriptions: Ciprofloxacin HCl [Cipro] 500 mg PO BID #20 tab Instructions: Urinary Retention Forms: [facility] (Welsh)
[2018-03-16 09:11] VITALS: BP 140/77; PULSE 78; TEMP 98.3; O2SAT 100
--- NOTE | 2018-03-18 09:23 | OP ---
PROCEDURE DATE: 03/16/18 SURGEON: Alexsandar Main MD INDICATION: This is a 57-year-old male patient, I was called to see in the emergency room on 03/16/2018 because of acute urinary retention. The patient had been drinking the night prior. He has a known history of stricture disease and as a consequence of this combination, he went into complete urinary retention. DESCRIPTION OF PROCEDURE: When I saw the patient in the emergency room, the bladder was significantly distended. At this time, I used the Kendra catheter to enter into the lower portion of the abdomen and through a direct needlestick, I inserted the catheter into his bladder. Immediately clear urine was beginning to efflux from that catheter. I secured it to the abdominal wall with 3-0 Vicryl suture. The bag Heredia catheter was connected to this tube from his suprapubic area and positioned into good place and it was draining clearly. I did advice the patient to follow up in the office for definitive treatment of his urethral stricture. Alexsandra Main MD
== END 2018-03-16 08:40 | disposition home or self-care (01) ==
LOC: H.ER 23:52
DX: R33.8 Other retention of urine (principal); I10 Essential (primary) hypertension; N40.1 Benign prostatic hyperplasia with lower urinary tract symptoms
CPT/HCPCS: 51702; 80048; 85025; 96374; 99284; J2270

== ENCOUNTER 2018-03-26 06:04 | Day surgery (SDC) | payer SELFPAY ==
[2018-03-26 06:31] VITALS: BMI 32.5
[2018-03-26] MEDS ORDERED: Lactated Ringer's 1,000 ML IV ONE (07:15)
[2018-03-26] MEDS ORDERED: cefTRIAXone (Rocephin) 1 gm Inj ONE (07:20)
[2018-03-26] MEDS ORDERED: Chlorhexidine Gluconate 2OZ GEL TP ONE ×2 (07:21→08:45)
[2018-03-26] MEDS ORDERED: Sevoflurane - Inhalation Anesthetic Liq (250 ml) ONE (08:02)
[2018-03-26] MEDS ORDERED: Midazolam 2 MG/2 ML VIAL ONE (08:02)
[2018-03-26] MEDS ORDERED: Propofol 10 mg/ml Inj (20 ML) ONE (08:02)
[2018-03-26] MEDS ORDERED: cefTRIAXone (Rocephin) 1 gm Inj IM ONE (08:34)
[2018-03-26] MEDS ORDERED: DiphenhydrAMINE 50 mg/ml Inj IVP PRN (09:08)
[2018-03-26] MEDS ORDERED: HYDROmorphone 0.5 mg/0.5 ml ISec IVP PRN (09:08)
[2018-03-26] MEDS ORDERED: Lactated Ringer's 1,000 ML IV SCH (09:15)
[2018-03-26 15:34] VITALS: RESP 18
[2018-03-26 15:44] VITALS: BP 128/77; PULSE 58; TEMP 98; O2SAT 97
--- NOTE | 2018-03-27 15:25 | CARD ---
APPROVED REPORT Date of service: 03/26/2018 EKG Measurement Heart [id number] <Conclusion> Normal sinus rhythm Normal ECG
--- NOTE | 2018-04-25 13:23 | OP ---
Copied To: Alexsandra Main MD Attending MD: Alexsandra Main MD PROCEDURE DATE: 03/26/2018 PREOPERATIVE DIAGNOSIS: Urethral stricture. POSTOPERATIVE DIAGNOSIS: Midurethral stricture. PROCEDURE PERFORMED: Cystoscopy with a laser internal optical urethrotomy. DESCRIPTION OF PROCEDURE: The patient was placed on the operating room table in the dorsal lithotomy position and given general anesthesia. The area of the groin was draped and prepped in a sterile manner. Using a #19 cystoscope, I entered into the urethra atraumatically, and in the midurethral area, there was noted an impassable stricture. I used the holmium laser to open my way through this strictured area, and once that was done, then I could easily pass the 19-Japanese cystoscope beyond this area and into the bladder. The bladder itself was completely normal. There was no unusual lesions or activity within the bladder. Prostate was nonocclusive. At this time, the cystoscope was then removed, then a #22 two-way Hered[place] catheter was inserted. The patient then was taken from the operating room in good condition. Alexsandra Main MD
== END 2018-03-26 15:30 | disposition home or self-care (01) ==
LOC: H.OPSURG 06:04
PROVIDERS: ATTEND Urology
DX: N35.9 Urethral stricture, unspecified (principal)
CPT/HCPCS: 52275; 93005; J0696; J2001; J2250; J2704; J3010; J7120

== ENCOUNTER 2018-05-13 08:28 | Emergency (ER) | payer SELFPAY ==
[2018-05-13 08:38] VITALS: TEMP 98
[2018-05-13 08:39] VITALS: BMI 34.9
--- NOTE | 2018-05-13 09:36 | ED PDOC ---
HPI: Eye Injury/Pain Time Seen by Provider: 05/13/18 08:45 Chief Complaint (Nursing): ENT Problem Chief Complaint (Provider): eye pain History Per: Patient History/Exam Limitations: language barrier (Voyce translation (grenadian) [facility] [id number] [facility]) Onset/Duration Of Symptoms: Days (4) Current Symptoms Are (Timing): Still Present Injury To Eye?: No Severity: Mild Quality: Aching Wears Contact Lens?: No Associated Symptoms: Pain, Discharge From Eye (watery) Additional Complaint(s): 57 yo M with history of bilateral eye pain, worse on L than R, for 4 days. 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 also has watery dc. no purulent dc. no fever. no eyeglasses, except for reading. Past Medical History Vital Signs: Last Vital Signs Temp 98 F 05/13/18 08:38 Pulse 70 05/13/18 08:38 Resp 20 05/13/18 08:38 BP 159/96 H 05/13/18 08:38 Pulse Ox 96 05/13/18 08:38 - Medical History PMH: Benign Prostatic Hyperplasia, HTN Denies: Chronic Kidney Disease - Surgical History Other surgeries: prostate surgery - Family History Family History: States: Unknown Family Hx - Social History Current smoker - smoking cessation education provided: Yes (occ) Alcohol: None Drugs: Denies - Home Medications Home Medications: Ambulatory Orders Medication Instructions Recorded Acetaminophen [Tylenol] 325 mg PO ASDIR 03/26/18 Ciprofloxacin [Cipro] 500 mg PO Q12 03/26/18 Ibuprofen [Motrin Tab] 400 mg PO ASDIR PRN 03/26/18 Tobramycin 0.3% [Tobrex 0.3% Ophth 1 drop OU Q4H #1 bottle 05/13/18 Soln] - Allergies Allergies/Adverse Reactions: Allergies Allergy/AdvReac Type Severity Reaction Status Date / Time No Known Allergies Allergy Verified 03/26/18 06:32 Physical Exam - Reviewed Vital Signs Reviewed: Yes - Physical Exam Appears: Positive for: Well, Non-toxic, No Acute Distress Head Exam: Positive for: ATRAUMATIC, NORMAL INSPECTION, NORMOCEPHALIC Skin: Positive for: Normal Color, Warm, DRY Eye Exam: Positive for: Normal appearance, EOMI, PERRL, Conjunctival injection ( left grater than right). Negative for: Periorbital swelling, Periorbital tenderness, Scleral icterus ENT: Positive for: Normal ENT Inspection Neck: Positive for: Normal, Painless ROM Cardiovascular/Chest: Positive for: Regular Rate, Rhythm Respiratory: Positive for: Normal Breath Sounds Gastrointestinal/Abdominal: Positive for: Normal Exam, Soft Back: Positive for: Normal Inspection Extremity: Positive for: Normal ROM Neurologic/Psych: Positive for: Alert, Oriented - ECG O2 Sat by Pulse Oximetry: 96 Medical Decision Making Medical Decision Making: eye pain rule out corneal abrasion, rule out conjunctivitis 1130 Patient is stable for discharge and requires no further treatment in the ED. Procedures - Time-Out Type of Procedure: Fluorescein stain Site of Procedure: Bilateral eyes Correct Patient (with visual ID + MR# on ID Band): Yes Correct Procedure: Yes Physician Name: Analia Townsend - Eye Procedure Progress: Flucaine drops administered to bilateral eyes. No abrasions noted to bilateral eyes with back light. Patient tolerated procedure well. Disposition - Clinical Impression Clinical Impression: Conjunctivitis - Patient ED Disposition Is Patient to be Admitted: No Counseled Patient/Family Regarding: Studies Performed, Diagnosis, Need For Followup - Disposition Referrals: [facility] [Outside] Wesley Bonilla MD [Staff Provider] - Disposition: Routine/Home Disposition Time: 10:35 Condition: IMPROVED Additional Instructions: follow up with opthalmologist as instructed in 3 days return to the ED with any worsening or concerning symptoms Prescriptions: Tobramycin 0.3% [Tobrex 0.3% Ophth Soln] 1 drop OU Q4H #1 bottle Instructions: Conjunctivitis (Pinkeye) (DC) Forms: [employer] (German) Print Language: BARBADIAN
[2018-05-13] MEDS ORDERED: PROPARACAINE/FLUORESCEIN SOD 100 DROP/5 ML BOTTLE ONE (11:05)
[2018-05-13 12:47] VITALS: BP 150/90; PULSE 72; RESP 18
[2018-05-14 09:23] VITALS: O2SAT 96
== END 2018-05-13 11:50 | disposition home or self-care (01) ==
LOC: H.ER 08:28
DX: H10.9 Unspecified conjunctivitis (principal); F17.200 Nicotine dependence, unspecified, uncomplicated; I10 Essential (primary) hypertension; N40.0 Benign prostatic hyperplasia without lower urinary tract symptoms

== ENCOUNTER 2018-06-17 21:53 | Emergency (ER) | payer SELFPAY ==
[2018-06-17 21:53] VITALS: BMI 34.9
--- NOTE | 2018-06-18 00:37 | ED PDOC ---
HPI: Psych/Substance Abuse Time Seen by Provider: 06/17/18 22:08 Chief Complaint (Nursing): Alcohol Ingestion Chief Complaint (Provider): Alcohol Intoxication History Per: Patient History/Exam Limitations: no limitations Current Symptoms Are (Timing): Still Present Modifying Factor(s): Alcohol Severity: Moderate Additional Complaint(s): 57 year old male with a past medical history of alcohol abuse is brought into the ED by EMS for public alcohol intoxication. Patient denies having any complaints or symptoms. PMD: None Past Medical History Reviewed: Historical Data, Nursing Documentation, Vital Signs Vital Signs: Last Vital Signs Temp 98.5 F 06/17/18 21:56 Pulse 97 H 06/17/18 21:56 Resp 18 06/17/18 21:56 BP 169/111 H 06/17/18 21:56 Pulse Ox 97 06/17/18 21:56 - Medical History PMH: Benign Prostatic Hyperplasia, Fractures (nasal fracture), HTN Denies: Chronic Kidney Disease - Family History Family History: States: Unknown Family Hx - Social History Alcohol: Other (history of alcohol abuse) - Home Medications Home Medications: Ambulatory Orders Medication Instructions Recorded Acetaminophen [Tylenol] 325 mg PO ASDIR 03/26/18 Ciprofloxacin [Cipro] 500 mg PO Q12 03/26/18 Ibuprofen [Motrin Tab] 400 mg PO ASDIR PRN 03/26/18 Tobramycin 0.3% [Tobrex 0.3% Ophth 1 drop OU Q4H #1 bottle 05/13/18 Soln] - Allergies Allergies/Adverse Reactions: Allergies Allergy/AdvReac Type Severity Reaction Status Date / Time No Known Allergies Allergy Verified 06/17/18 21:55 Review of Systems ROS Statement: Except As Marked, All Systems Reviewed And Found Negative Physical Exam - Reviewed Nursing Documentation Reviewed: Yes Vital Signs Reviewed: Yes - Physical Exam Appears: Positive for: Well, Non-toxic, No Acute Distress Head Exam: Positive for: ATRAUMATIC, NORMOCEPHALIC Skin: Positive for: Normal Color Cardiovascular/Chest: Positive for: Regular Rate, Rhythm Respiratory: Positive for: Normal Breath Sounds Neurologic/Psych: Positive for: Alert, Oriented (3x), Gait (unsteady), Other (slurred speech) - ECG O2 Sat by Pulse Oximetry: 97 (RA) Pulse Ox Interpretation: Normal Medical Decision Making Medical Decision Makin:08 Initial impression: 57 year old male with alcohol intoxication. Initial plan: * alcohol serum * drug screen, urine * glucose, poc * ativan 2 mg IM once * haldol 5 mg IM * accucheck * reevaluation 6:24 Upon provider reevaluation patient is clinically sober, medically stable, and requires no further treatment in the ED at this time. Patient will be discharged home. Counseling was provided and all questions were answered regarding diagnosis of alcohol intoxication. There is agreement to discharge plan. Return if symptoms persist or worsen. Scribe Attestation: Documented by Rylie Torres, acting as a scribe for Jacques Elizabeth MD. Provider Scribe Attestation: All medical record entries made by the Scribe were at my direction and personally dictated by me. I have reviewed the chart and agree that the record accurately reflects my personal performance of the history, physical exam, medical decision making, and the department course for this patient. I have also personally directed, reviewed, and agree with the discharge instructions and disposition. Disposition - Clinical Impression Clinical Impression: Alcohol abuse with intoxication - Disposition Disposition Time: 06:24 Condition: IMPROVED Instructions: Effects of Alcohol on Your Health Forms: [employer] (Indian) Print Language: ROMANSH
[2018-06-18 01:01] LABS: BARBITURATES, UR NEGATIVE (NEGATIVE); BENZODIAZEPINES, UR NEGATIVE (NEGATIVE); OPIATES, UR NEGATIVE (NEGATIVE); PHENCYCLIDINE, UR NEGATIVE (NEGATIVE)
[2018-06-18 07:26] VITALS: BP 144/78; PULSE 75; RESP 18; TEMP 98.1; O2SAT 96
== END 2018-06-18 07:34 | disposition home or self-care (01) ==
LOC: H.ER 21:53
DX: F10.129 Alcohol abuse with intoxication, unspecified (principal); Y90.7 Blood alcohol level of 200-239 mg/100 ml; N40.0 Benign prostatic hyperplasia without lower urinary tract symptoms; I10 Essential (primary) hypertension
CPT/HCPCS: 80320; 80324; 80345; 80346; 80349; 80353; 80358; 80361; 82948; 83992; 96372; 99284; J1630; J2060